=== PATIENT | female | born 1960 | race Asian ===

== ENCOUNTER 2016-11-07 21:40 | Emergency (ER) | payer MEDICAID ==
[~2016-11-07] VITALS: Ht 162.6 cm; Wt 86.2 kg
[2016-11-07] MEDS ORDERED: AMLODIPINE BESY10 MG ORAL (22:07)
--- NOTE | 2016-11-07 22:24 | Emergency Room Report ---
History of Present Illness General Chief Complaint: Generalized Weakness Source: Patient Present Illness HPI Patient presents with fevers chills vomiting and abdominal cramps. She also is coughing up green phlegm at this time. She is a smoker. Just slight amount of chest pain. She's not been evaluated for this. She has no exposure to tuberculosis. She's previously been evaluated for possible GI problems with cramps and diarrhea. This is somewhat worsened today. There's been no melena or hematemesis. She feels weak. Pain in her abdomen is 5/10, crampy, diffuse. Not radiating. No dysuria. No headache. She was told she needs endoscopy and colonoscopy. 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 + Reviewed Nursing Documentation: PMH: Agreed, PSxH: Agreed Nursing Documentation-PMH Hx Cardiac Problems: Yes - HIGH CHOLESTEROL Hx Hypertension: Yes Review of Systems All Other Systems: negative except mentioned in HPI Physical Exam Vital Signs Date Time Temp Pulse Resp B/P (MAP) Pulse Ox O2 Delivery O2 Flow Rate FiO2 11/07/16 22:00 98.2 72 18 145/79 96 Room Air Sp02 EP Interpretation: reviewed, normal General Appearance: well appearing, no apparent distress, GCS 15 Head: normocephalic, atraumatic Eyes: bilateral eye normal inspection, bilateral eye PERRL ENT: normal pharynx, moist mucus membranes Neck: supple Respiratory: lungs clear, wheezing, expiration - minimal L upper lung Cardiovascular #1: regular rate, rhythm Cardiovascular #2: 2+ radial (R) Gastrointestinal: normal inspection, normal bowel sounds, non tender, no mass, non-distended Musculoskeletal: back normal, gait/station normal, normal range of motion Neurologic: alert, oriented x3, grossly normal Psychiatric: mood/affect normal Skin: normal inspection, warm/dry Medical Decision Making Diagnostic Impression: Primary Impression: Bronchospasm Additional Impressions: Early pneumonia Abdominal cramping ER Course Patient presents with cough and abdominal pain that's been worsening over several weeks. Differential includes pneumonia, asthmatic bronchitis, bronchitis amongst others. She has chronic issues with her abdomen and was vomiting earlier today. Evaluation here will be with EKG, chest x-ray and labs. The patient be treated for IV hydration, Zofran and a small dose of analgesic. In addition to that she will receive albuterol. EKG is unremarkable except for prolonged QT. Chest x-ray has some increased leary R base, the heart size is normal. Labs are significant for an elevated white count. Urinalysis is clear. The patient is an approved and tolerates by mouth without difficulty. Improved with albuterol. Because of a leukocytosis and the purulent sputum the patient will be given a prescription for antibiotics. In addition to that she will receive Zofran and albuterol. Patient stable for outpatient observation and treatment. Laboratory Tests Test 11/07/16 23:00 11/08/16 00:35 11/08/16 00:40 Urine Color Yellow Urine Appearance Slightly cloudy Urine pH 5 (4.5-8.0) Urine Specific [place] 1.025 (1.005-1.035) Urine Protein 2+ (NEGATIVE) H Urine Glucose (UA) Negative (NEGATIVE) Urine Ketones Negative (NEGATIVE) Urine Occult Blood Negative (NEGATIVE) Urine Nitrite Negative (NEGATIVE) Urine Bilirubin Negative (NEGATIVE) Urine Urobilinogen 4 MG/DL (0.0-1.0) H Urine Leukocyte Esterase 1+ (NEGATIVE) H Urine RBC 0-2 /HPF (0 - 2) Urine WBC 2-4 /HPF (0 - 2) Urine Squamous Epithelial Cells Few /LPF (NONE/OCC) Urine Bacteria Few /HPF (NONE) White Blood Count 12.4 K/UL (4.8-10.8) H Red Blood Count 5.01 M/UL (4.20-5.40) Hemoglobin 15.8 G/DL (12.0-16.0) Hematocrit 47.5 % (37.0-47.0) H Mean Corpuscular Volume 95 FL (80-99) Mean Corpuscular Hemoglobin 31.5 PG (27.0-31.0) H Mean Corpuscular Hemoglobin Concent 33.2 G/DL (32.0-36.0) Red Cell Distribution Width 11.5 % (11.6-14.8) L Platelet Count 325 K/UL (150-450) Mean Platelet Volume 6.6 FL (6.5-10.1) Neutrophils (%) (Auto) 50.3 % (45.0-75.0) Lymphocytes (%) (Auto) 42.8 % (20.0-45.0) Monocytes (%) (Auto) 4.9 % (1.0-10.0) Eosinophils (%) (Auto) 0.9 % (0.0-3.0) Basophils (%) (Auto) 1.2 % (0.0-2.0) Prothrombin Time 11.3 SEC (9.30-11.50) Prothrombin Time INR 1.1 (0.9-1.1) PTT 32 SEC (23-33) Sodium Level 140 mEQ/L (135-145) Potassium Level 3.8 mEQ/L (3.4-4.9) Chloride Level 102 mEQ/L (98-107) Carbon Dioxide Level 24 mEQ/L (20-30) Anion Gap 14 (5-15) Blood Urea Nitrogen 8 mg/dL (7-23) Creatinine 0.6 mg/dL (0.5-0.9) Estimate Glomerular Filtration Rate > 60 mL/min (>60) Glucose Level 105 mg/dL (74-106) Calcium Level 9.2 mg/dL (8.6-10.2) Total Bilirubin 0.7 mg/dL (0.0-1.2) Aspartate Amino Transferase (AST) 32 U/L (5-40) Alanine Aminotransferase (ALT) 35 U/L (3-33) H Alkaline Phosphatase 93 U/L (35-104) Total Creatine Kinase 132 U/L (26-140) Pro-B-Type Natriuretic Peptide 14 pg/mL (0-125) Total Protein 7.6 g/dL (6.6-8.7) Albumin 4.6 g/dL (3.5-5.2) Globulin 3.0 g/dL Albumin/Globulin Ratio 1.5 (1.0-2.7) Lactic Acid Level 1.10 mmol/L (0.66-2.22) EKG Diagnostic Results Rate: normal Rhythm: NSR ST Segments: no acute changes Rhythm Strip Diag. Results EP Interpretation: yes Rhythm: NSR, no PVC's, no ectopy Chest X-Ray Diagnostic Results Chest X-Ray Diagnostic Results : Chest X-Ray Ordered: Yes # of Views/Limited/Complete: 1 View Indication: Other Interpretation: no consolidation, no effusion, no pneumothorax, other - RML inc leary Impression: Other Electronically Signed by: Electronically signed by Joao Chino MD Last Vital Signs Date Time Temp Pulse Resp B/P (MAP) Pulse Ox O2 Delivery O2 Flow Rate FiO2 11/08/16 03:32 98.0 88 16 136/65 99 Room Air Status: improved Disposition: HOME, SELF-CARE Condition: Improved Scripts Ondansetron Odt* (ZOFRAN ODT*) 4 Mg Tab.rapdis 4 MG ORAL Q8H Y for Nausea & Vomiting, #6 TAB 0 Refills Prov: Joao Chino M.D. 11/08/16 Albuterol Sulfate* (ALBUTEROL SULFATE MDI*) 8.5 Gm Hfa.aer.ad 2 PUFF INH Q6H, #1 EA 0 Refills Prov: Joao Chino M.D. 11/08/16 Codeine/Promethazine Hcl* (PROMETHAZINE-CODEINE SYRUP*) 118 Ml Syrup 5 ML ORAL Q6H Y for For Cough, #60 ML 0 Refills Prov: Joao Chino M.D. 11/08/16 Levofloxacin* (LEVAQUIN*) 500 Mg Tablet 500 MG ORAL DAILY, #7 TAB Prov: Joao Chino M.D. 11/08/16 Joao Chino M.D. Nov 07, 2016 22:24
[2016-11-07] MEDS ORDERED: Ketorolac 30mg Inj IV ONE (22:30)
[2016-11-07] MEDS ORDERED: Ipratropium 0.02% Inh Soln 2.5ml UD HHN ONE (22:30)
[2016-11-07] MEDS ORDERED: Albuterol ud Inhalation HHN ONE (22:30)
[2016-11-07 23:31] LABS: KETONES,URINE NEGATIVE (NEGATIVE); LEUKOCYTE ESTERASE ,URINE 1+ (NEGATIVE); NITRITE,URINE NEGATIVE (NEGATIVE); PH,URINE 5 (4.5-8.0); PROTEIN,URINE 2+ (NEGATIVE); UROBILINOGEN,URINE 4 MG/DL (0.0-1.0)
[2016-11-08 00:15] LABS: APPEARANCE,URINE SLIGHTLY CLOUDY
[2016-11-08 00:29] LABS: BACTERIA,URINE FEW /HPF; RBC,URINE 0-2 /HPF (0 - 2); SQUAMOUS EPITHELIAL CELL,UR FEW /LPF (NONE/OCC)
[2016-11-08 00:30] VITALS: BP 145/79
[2016-11-08 00:58] LABS: BASOPHILS % (AUTO) 1.2 % (0.0-2.0); EOSINOPHILS % (AUTO) 0.9 % (0.0-3.0); LYMPHOCYTES % (AUTO) 42.8 % (20.0-45.0); MEAN CORPUSCULAR HEMOGLOBIN 31.5 PG (27.0-31.0); MEAN CORPUSCULAR HGB CONC 33.2 G/DL (32.0-36.0); MEAN CORPUSCULAR VOLUME 95 FL (80-99); MEAN PLATELET VOLUME 6.6 FL (6.5-10.1); MONOCYTES % (AUTO) 4.9 % (1.0-10.0); NEUTROPHILS % (AUTO) 50.3 % (45.0-75.0); PLATELET COUNT 325 K/UL (150-450); RED BLOOD COUNT 5.01 M/UL (4.20-5.40); RED CELL DISTRIBUTION WIDTH 11.5 % (11.6-14.8); WHITE BLOOD COUNT 12.4 K/UL (4.8-10.8)
[2016-11-08 01:12] LABS: ALANINE AMINOTRANSFERASE 35 U/L (3-33); ALBUMIN/GLOBULIN RATIO 1.5 (1.0-2.7); ANION GAP 14 (5-15); ASPARTATE AMINO TRANSFERASE 32 U/L (5-40); CALCIUM 9.2 mg/dL (8.6-10.2); CARBON DIOXIDE 24 mEQ/L (20-30); CHLORIDE 102 mEQ/L (98-107); CREATININE 0.6 mg/dL (0.5-0.9); GLOMERULAR FILTRATION RATE > 60 mL/min (>60); HEMOLYSIS 5; POTASSIUM 3.8 mEQ/L (3.4-4.9); SODIUM 140 mEQ/L (135-145); TOTAL PROTEIN 7.6 g/dL (6.6-8.7)
[2016-11-08 01:13] LABS: INR 1.1 (0.9-1.1); PROTHROMBIN TIME 11.3 SEC (9.30-11.50)
[2016-11-08] MEDS ORDERED: PROMETHAZINE-C118 M1 ORAL (01:33)
[2016-11-08] MEDS ORDERED: ALBUTEROL SULF8.5 GM INH (01:33)
[2016-11-08] MEDS ORDERED: ZOFRAN ODT4 MG ORAL (01:33)
[2016-11-08] MEDS ORDERED: LEVAQUIN500 MG ORAL (01:33)
[2016-11-08] MEDS ORDERED: Levofloxacin 500mg tab ORAL ONE (01:45)
[2016-11-08 03:20] VITALS: BP 136/65
[2016-11-08 03:32] VITALS: BP 136/65
--- NOTE | 2016-11-08 11:14 | Diagnostic Imaging Report ---
Indication: Cough Comparison: None A single view chest radiograph was obtained. Findings: Cardiomediastinal appearance is within normal limits for age. Pulmonary vascularity is appropriate. The diaphragmatic contour is smooth and costophrenic angles are sharp. No pleural effusions are identified. The bones are unremarkable. Impression: No acute findings
--- NOTE | 2016-11-11 16:01 | Cardiology Report ---
APPROVED REPORT EKG Measurement Heart [id number] HI [id number] Normal sinus rhythm Prolonged QT Abnormal ECG
== END 2016-11-08 03:32 | disposition home or self-care (01) ==
LOC: EMR 22:15
DX: J18.9 Pneumonia, unspecified organism (principal); R10.9 Unspecified abdominal pain; F17.200 Nicotine dependence, unspecified, uncomplicated; I10 Essential (primary) hypertension; R53.1 Weakness
CPT/HCPCS: 36415; 71010; 80053; 81003; 82550; 83605; 83880; 85025; 85610; 85730; 93005; 94640; 94664; 96361; 96374; 96375; 99284; J1885; J2405

== ENCOUNTER 2016-11-10 19:50 | Emergency (ER) | payer MEDICAID ==
[~2016-11-10] VITALS: Ht 162.6 cm; Wt 90.7 kg
[~2016-11-10 19:50] MED LIST: ALBUTEROL SULF8.5 GM INH; AMLODIPINE BESY10 MG ORAL; LEVAQUIN500 MG ORAL; PROMETHAZINE-C118 M1 ORAL; ZOFRAN ODT4 MG ORAL
[2016-11-10 20:26] VITALS: BP 160/87
[2016-11-10] MEDS ORDERED: ALPRAZOLAM0.25 MG ORAL (20:44)
[2016-11-10] MEDS ORDERED: RANITIDINE HCL150 MG ORAL (20:55)
[2016-11-10 20:57] VITALS: BP 160/87
--- NOTE | 2016-11-11 16:46 | Emergency Room Report ---
History of Present Illness General Chief Complaint: Generalized Weakness Source: Patient Present Illness HPI 56-year-old female presents ED for evaluation. Patient states that she was seen here 2 days ago for cough, weakness. Patient was discharged with antibiotics. States that her symptoms are not improving. Patient states she's been taking antibiotics as directed. Patient states she feels weak, pulse of feeling very anxious. Patient does admit to history of anxiety states that her anxiety is "very severe". Denies chest pain or shortness of breath. Denies any reaction to the medications prescribed. Denies suicidal or homicidal ideation. No other aggravating relieving factors. Denies any other associated symptoms Allergies: Coded Allergies: No Known Allergies (Unverified , 11/07/16) Patient History Past Medical History: HTN Past Surgical History: none Pertinent Family History: none Social History: Denies: smoking, alcohol use, drug use Now: No Immunizations: UTD Reviewed Nursing Documentation: PMH: Agreed, PSxH: Agreed Nursing Documentation-PMH Past Medical History: No History, Except For Hx Cardiac Problems: Yes - HIGH CHOLESTEROL Hx Hypertension: Yes Review of Systems All Other Systems: negative except mentioned in HPI Physical Exam Vital Signs Date Time Temp Pulse Resp B/P (MAP) Pulse Ox O2 Delivery O2 Flow Rate FiO2 11/10/16 19:58 98.4 66 17 160/87 98 Room Air Sp02 EP Interpretation: reviewed, normal General Appearance: no apparent distress, alert, GCS 15, non-toxic Head: normocephalic, atraumatic Eyes: bilateral eye normal inspection, bilateral eye PERRL ENT: hearing grossly normal, normal pharynx, no angioedema, normal voice Neck: full range of motion, supple/symm/no masses Respiratory: chest non-tender, lungs clear, normal breath sounds, speaking full sentences Cardiovascular #1: regular rate, rhythm, no edema Cardiovascular #2: 2+ carotid (R), 2+ carotid (L), 2+ radial (R), 2+ radial (L) , 2+ dorsalis pedis (R), 2+ dorsalis pedis (L) Gastrointestinal: normal bowel sounds, non tender, soft, non-distended, no guarding, no rebound Rectal: deferred Genitourinary: normal inspection, no CVA tenderness Musculoskeletal: back normal, gait/station normal, normal range of motion, non- tender Neurologic: alert, oriented x3, responsive, motor strength/tone normal, sensory intact, speech normal Psychiatric: judgement/insight normal, memory normal, no suicidal/homicidal ideation, anxious Reflexes: 3+ bicep (R), 3+ bicep (L), 3+ tricep (R), 3+ tricep (L), 3+ knee (R) , 3+ knee (L) Skin: normal color, no rash, warm/dry, well hydrated Lymphatic: no adenopathy Medical Decision Making Diagnostic Impression: Primary Impression: Anxiety Additional Impression: Episode of generalized weakness ER Course 56-year-old female presents ED complaining of weakness, dizziness. Differential-dehydration, pneumonia, sepsis Patient placed on stretcher. After initial history physical exam reveals a middle-aged female in no acute distress. Lungs clear. Abdomen soft. Patient does appear very anxious which I do believe he is controlling to her symptoms. Patient had lab work done a few days ago during her visit. Had minimal leukocytosis, electrolytes ok; chest x-ray was concerning for some increased atelectasis the right lung base but was read by radiology as normal I discussed the findings with the patient. Reassurance provided. I did not believe she needs any additional workup at this time. Patient is believe her anxiety is worsening her symptoms. Patient was prescribed Prozac by her PMD approximately one year ago but did not take it because her friends advised her not to. Explain the importance of taking medications as directed by PMD. I recommend continuing antibiotics as prescribed. Continue good oral fluid intake. Patient agrees with plan I will provide her with short course of low-dose Xanax Diagnoses-anxiety,, generalized weakness Stable and discharged to home prescription for Xanax. Continue medications as prescribed. Followup with PMD. Return to ED if symptoms recur or worsen Last Vital Signs Date Time Temp Pulse Resp B/P (MAP) Pulse Ox O2 Delivery O2 Flow Rate FiO2 11/10/16 20:57 98.4 66 17 160/87 98 Room Air Status: improved Disposition: HOME, SELF-CARE Condition: Stable Scripts Ranitidine Hcl* (ZANTAC*) 150 Mg Tablet 150 MG ORAL TWICE A DAY, #30 TAB Prov: RICHMOND NEVES M.D. 11/10/16 Alprazolam* (XANAX*) 0.25 Mg Tablet 0.25 MG ORAL TID Y for For Anxiety, #20 TAB Prov: RICHMOND NEVES M.D. 11/10/16 Referrals: NON PHYSICIAN (PCP) Patient Instructions: Depression, Adult, [id number] RICHMOND NEVES M.D. Nov 11, 2016 16:46
== END 2016-11-10 20:56 | disposition home or self-care (01) ==
LOC: EMR 20:37
DX: F41.9 Anxiety disorder, unspecified (principal); R53.1 Weakness; R05 Cough; I10 Essential (primary) hypertension
CPT/HCPCS: 99284

== ENCOUNTER 2017-02-01 07:06 | Day surgery (SDC) | payer BC ==
[~2017-02-01] VITALS: Ht 162.6 cm; Wt 83.5 kg
[2017-02-01] VITALS (9 sets, daily range): BP systolic 118–142; BP diastolic 58–78
--- NOTE | 2017-02-01 06:32 | Anethesia Preoperative Eval ---
Anesthesia Pre-op PMH/ROS General Date of Evaluation: Feb 01, 2017 Time of Evaluation: 06:29 Anesthesiologist: lalo ASA Score: ASA 3 Mallampati Score Class I : Soft palate, uvula, fauces, pillars visible Class II: Soft palate, uvula, fauces visible Class III: Soft palate, base of uvula visible Class IV: Only hard plate visible Mallampati Classification: Class II Surgeon: rich Diagnosis: gerd, diarrhea Surgical Procedure: colonoscopy Social History: current smoker Allergies: Coded Allergies: No Known Allergies (Unverified , 11/07/16) Medications: see eMAR Past Medical History Cardiovascular: Reports: HTN, other - hypercholesterolemia Pulmonary: Reports: other - bronchospasms Gastrointestinal/Genitourinary: Reports: GERD, other - abdominal cramping Neurologic/Psychiatric: Reports: depression/anxiety, other - episodic generalized weakness Other: obesity Anesthesia Pre-op Phys. Exam Physician Exam Last Vital Signs Date Time Temp Pulse Resp B/P (MAP) Pulse Ox O2 Delivery O2 Flow Rate FiO2 02/01/17 07:43 98.2 67 18 118/76 96 Room Air Constitutional: NAD Neurologic: CN 2-12 intact Cardiovascular: RRR Respiratory: CTA Gastrointestinal: S/NT/ND Airway Exam Mallampati Score: Class II MO: full Neck: supple TMD: 2fb Teeth: intact Anesthesia Pre-op A/P Studies Pre-op Studies: EKG - nsr, nssttwa Risk Assessment & Plan Assessment: asa3 patient admits to drinking coffee at 0630 today Plan: mac Status Change Before Surgery: No Pre-Antibiotics Drug: RAJI Humphries Feb 01, 2017 06:32
[~2017-02-01 07:06] MED LIST changes: +ALPRAZOLAM0.25 MG ORAL; +RANITIDINE HCL150 MG ORAL
[2017-02-01] MEDS ORDERED: LR 1000ml 1,000 ML IVLG SCH (08:12)
[2017-02-01] MEDS ORDERED: Atropine Inj 1mg/10ml Syr IV PRN (08:15)
[2017-02-01] MEDS ORDERED: Midazolam 2mg/2ml Inj IVP PRN (08:15)
[2017-02-01] MEDS ORDERED: fentaNYL 100 mcg/2 mL IV PRN (08:15)
[2017-02-01] MEDS ORDERED: DiphenhydrAMINE 50mg/ml Inj IVP PRN (08:15)
[2017-02-01] MEDS ORDERED: Propofol 200mg/20ml IV ONE (08:30)
[2017-02-01] MEDS ORDERED: Lidocaine 1% MPF 10mg/ml 5ml ONE (08:30)
--- NOTE | 2017-02-01 08:54 | Pre-Procedure Note/Attestation ---
Pre-Procedure Note/Attestation Complete Prior to Procedure Planned Procedure: not applicable Procedure Narrative: esophagogastroduodenoscopy and colonoscopy Indications for Procedure Pre-Operative Diagnosis: screening colon, GERD Attestation I attest that I discussed the nature of the procedure; its benefits; risks and complications; and alternatives (and the risks and benefits of such alternatives ), prior to the procedure, with the patient (or the patient's legal electronics parts sales representative). I attest that, if there was a reasonable possibility of needing a blood transfusion, the patient (or the patient's legal electronics parts sales representative) was given the [facility] standardized written summary, pursuant to the Blane [place] Blood Safety Act ([place] Health and Safety Code # 1645, as amended). I attest that I re-evaluated the patient just prior to the surgery and that there has been no change in the patient's H&P, except as documented below: SONJA VALLE Feb 01, 2017 08:54
--- NOTE | 2017-02-01 08:54 | Short Stay Surgery H&P ---
History of Present Illness History of Present Illness Chief Complaint screening colon, GERD HPI Addie Harper is a 56 year old female who was admitted on for Gerd, Diarrhea Patient History Allergies: Coded Allergies: No Known Allergies (Unverified , 11/07/16) PAST MEDICAL HISTORY: (1) Bronchospasm (2) Abdominal cramping (3) Anxiety (4) Episode of generalized weakness Past Surgeries: Social History: Medication History Scheduled Albuterol Sulfate* (Albuterol Sulfate Mdi*), 2 PUFF INH Q6H Amlodipine Besylate* (Amlodipine Besylate*), 10 MG ORAL DAILY, (Reported) Levofloxacin* (Levaquin*), 500 MG ORAL DAILY Ranitidine Hcl* (Zantac*), 150 MG ORAL TWICE A DAY Scheduled PRN Alprazolam* (Xanax*), 0.25 MG ORAL TID PRN for For Anxiety Codeine/Promethazine Hcl* (Promethazine-Codeine Syrup*), 5 ML ORAL Q6H PRN for For Cough Ondansetron Odt* (Zofran Odt*), 4 MG ORAL Q8H PRN for Nausea & Vomiting Review of Systems Cardiovascular: Reports: no symptoms Skeletal: Reports: no symptoms Gastrointestinal: Reports: gastro esophageal reflux disease Genitourinary: Reports: no symptoms Endocrine: Reports: no symptoms Hematologic: Reports: no symptoms Physical Exam Vital Signs Last Vital Signs Date Time Temp Pulse Resp B/P (MAP) Pulse Ox O2 Delivery O2 Flow Rate FiO2 02/01/17 07:43 98.2 67 18 118/76 96 Room Air Skin: normal HENT: normal Heart: normal Lungs: normal Abdomen: normal Extremities: normal Plan Plan of Care esophagogastroduodenoscopy and colonoscopy Final Diagnosis: Attestation Are the patient's medical conditions optimized for surgery? Attestation Response: yes SONJA VALLE Feb 01, 2017 08:54
--- NOTE | 2017-02-01 09:31 | Endoscopy Procedure Note ---
Endoscopy Procedure Note Indication for Procedure: screening colon, GERD Procedures Performed: EGD, colonoscopy Operative Findings/Diagnosis: 5 polyps Specimen: yes Pt Tolerated Procedure Well: Yes Estimated Blood Loss: none Anesthesiologist: zacarias Anesthesia: MAC Implant(s) used?: No 50 yrs or older w/o bx or poly: No 10yrs. F/U not recommended: Yes If not recommended, why?: Above average risk 10 yrs. F/U needed: Yes 18 years or older w/prev. colo: No SONJA VALLE Feb 01, 2017 09:31
--- NOTE | 2017-02-01 09:53 | Immediate Post-Op Evaluation ---
Immediate Post-Op Evalulation Immediate Post-Op Evalulation Procedure: egd/colonoscopy Date of Evaluation: Feb 01, 2017 Time of Evaluation: 09:48 IV Fluids: 700ml 0.9ns Blood Products: none Estimated Blood Loss: negligible Blood Pressure Systolic: 123 Blood Pressure Diastolic: 74 Pulse Rate: 56 Respiratory Rate: 18 O2 Sat by Pulse Oximetry: 99 Temperature (Fahrenheit): 98.6 Pain Score (1-10): 0 Nausea: No Vomiting: No Complications none Patient Status: awake, reacts, patent Hydration Status: adequate Drug: RAJI Humphries Feb 01, 2017 09:53
--- NOTE | 2017-02-01 09:55 | 48 Hour Post Anesthesia Eval ---
Post Anesthesia Evaluation Procedure: egd/colonoscopy Date of Evaluation: Feb 01, 2017 Time of Evaluation: 09:54 Blood Pressure Systolic: 130 0: 74 Pulse Rate: 54 Respiratory Rate: 18 Temperature (Fahrenheit): 98.6 O2 Sat by Pulse Oximetry: 99 Airway: patent Nausea: No Vomiting: No Pain Intensity: 0 Hydration Status: adequate Cardiopulmonary Status: stable Mental Status/LOC: patient returned to baseline Post-Anesthesia Complications: none Follow-up care needed: N/A RAJI JANG Feb 01, 2017 09:55
--- NOTE | 2017-02-01 17:45 | Procedure Note ---
DATE OF PROCEDURE: 02/01/2017 SURGEON: Jose Garsia M.D. PROCEDURE: Colonoscopy with biopsy, polypectomy, and endoscopy with biopsy. ANESTHESIA: Per Dr. Gutierrez. INSTRUMENT: Olympus adult flexible upper endoscope and colonoscope. INDICATION: Screening colonoscopy evaluation and chronic GERD. The procedure, risks, benefits, and possible consequences, including hemorrhage, aspiration, perforation and infection, and alternative treatments, were explained to the patient/legal guardian by Dr. Jose Garsia and the patient/legal guardian understood and accepted these risks. DESCRIPTION OF PROCEDURE: After informed consent was obtained and the patient was adequately sedated, Olympus upper endoscope was advanced from the mouth into the second portion of the duodenum and retroflexion was performed in the stomach. The patient had evidence of a nodule in the peripyloric region, most probably an erosion. That area was biopsied. Also random biopsy from body and antrum was obtained to rule out H. pylori infection. At this time, the upper endoscope was retrieved and the patient was turned over for colonoscopy. First, a rectal exam was performed, which was positive for external hemorrhoids. Then, the scope was advanced from the rectum into the cecum and then subsequently into the terminal ileum. Quality of prep was very good. The patient had 1 diminutive polyp above the appendix, which was biopsied. The patient had another diminutive polyp in the transverse colon, removed with the cold biopsy forceps technique. In the area of the left colon, there were multiple small lesions with central cavitation. I am not sure exactly what was the significance of these lesions, 2 of them were biopsied. The patient had 2 diminutive polyps in the sigmoid, removed with the cold biopsy forceps technique. In the rectum, there was a sessile polyp measured roughly about 7 mm, removed with the hot snare polypectomy technique. Retroflexion of rectum showed no evidence of obvious internal hemorrhoids. SUMMARY OF FINDINGS: 1. Gastritis, status post biopsy. 2. Antral lesions, status post biopsy. 3. Total of 5 colonic polyps removed. See above for details. 4. External hemorrhoids. RECOMMENDATIONS: Follow biopsies and treat accordingly. We recommend a repeat colonoscopy in 3 years. Jose Garsia M.D. DR: SPRING JOB#: [id number] CC:
--- NOTE | 2017-02-07 10:56 | Cardiology Report ---
APPROVED REPORT EKG Measurement Heart [id number] ME [id number] Normal sinus rhythm Nonspecific ST and T wave abnormality Prolonged QT Abnormal ECG
== END 2017-02-01 10:55 | disposition home or self-care (01) ==
LOC: GAS 07:06
DX: Z12.11 Encounter for screening for malignant neoplasm of colon (principal); K29.50 Unspecified chronic gastritis without bleeding; K21.9 Gastro-esophageal reflux disease without esophagitis; K63.5 Polyp of colon; K64.4 Residual hemorrhoidal skin tags; F41.9 Anxiety disorder, unspecified; F17.200 Nicotine dependence, unspecified, uncomplicated; I10 Essential (primary) hypertension; E78.00 Pure hypercholesterolemia, unspecified; F32.9 Major depressive disorder, single episode, unspecified; D12.7 Benign neoplasm of rectosigmoid junction; D12.3 Benign neoplasm of transverse colon
CPT/HCPCS: 43239; 45380; 82962; 93005; J2704; 94003; 94150

== ENCOUNTER 2017-03-27 15:43 | Emergency (ER) | payer BC, OTHER ==
[~2017-03-27] VITALS: Ht 162.6 cm; Wt 86.2 kg
[2017-03-27 16:29] VITALS: BP 127/81
[2017-03-27] MEDS: LORazepam Inj 2mg/ml 1ml IV ONE ×2 (16:33→17:27)
--- NOTE | 2017-03-27 16:37 | Emergency Room Report ---
History of Present Illness General Chief Complaint: General Complaint Source: Patient Present Illness HPI The patient presents with a dyspnea headache and possible fevers. This started on Saturday. She took some alprazolam on Saturday. She has hypertension. She has also been treating herself for asthma and bronchospasm. No productive cough. She is on an antihypertensive and is compliant. She gets dyspneic when she is stressed. This can happen at work. With this, she feels chest pressure and anxiety. She states her blood pressure goes up when she feels this way. No chest pain, NVD, dysuria, headache, extremity pain, rashes, change in vision. No calf pain, swelling, hemoptysis. No flu shot. She's been seen here in the past for anxiety and bronchospasm. She does smoke and occasionally drinks a glass of wine. Allergies: Coded Allergies: No Known Allergies (Unverified , 11/07/16) Patient History Past Medical History: see triage record, old chart reviewed Social History: Reports: smoking, alcohol use, Denies: drug use Last Menstrual Period: na Reviewed Nursing Documentation: PMH: Agreed, PSxH: Agreed Nursing Documentation-PMH Past Medical History: No History, Except For Hx Cardiac Problems: Yes Hx Hypertension: Yes Hx Asthma: Yes Hx Diabetes: Yes Hx Cancer: No Hx Gastrointestinal Problems: Yes Hx Neurological Problems: No Review of Systems All Other Systems: negative except mentioned in HPI Physical Exam Vital Signs Date Time Temp Pulse Resp B/P (MAP) Pulse Ox O2 Delivery O2 Flow Rate FiO2 03/27/17 15:58 97.9 69 20 121/77 98 Room Air Sp02 EP Interpretation: reviewed, normal General Appearance: well appearing, no apparent distress, GCS 15 Head: normocephalic, atraumatic Eyes: bilateral eye normal inspection, bilateral eye PERRL ENT: moist mucus membranes Neck: supple Respiratory: lungs clear, normal breath sounds Cardiovascular #1: regular rate, rhythm Cardiovascular #2: 2+ radial (R) Gastrointestinal: normal inspection, normal bowel sounds, non tender, no mass, non-distended Musculoskeletal: back normal, gait/station normal, normal range of motion Neurologic: alert, oriented x3, motor strength/tone normal, sensory intact, normal gait, speech normal Skin: normal inspection, warm/dry Medical Decision Making Diagnostic Impression: Primary Impression: Dyspnea Qualified Codes: R06.00 - Dyspnea, unspecified Additional Impressions: Anxiety Labile hypertension ER Course Patient presents with dyspnea and possible fever. Ddx: viral syndrome, influenza, anxiety, bronchospasm (though no wheezes now), AMI amongst others. Evaluation with EKG, CXR and labs. Treatment with ativan. EKG no injury. CXR normal. Labs unremarkable. Flu negative. No documented fever. No wheezing. Patient improed with treatment. Discussed consideration for Paxil. BP has been stable. No medical emergency. Patient stable for outpatient observation and treatment. Laboratory Tests Test 03/27/17 16:38 White Blood Count 10.4 K/UL (4.8-10.8) Red Blood Count 4.79 M/UL (4.20-5.40) Hemoglobin 15.4 G/DL (12.0-16.0) Hematocrit 44.3 % (37.0-47.0) Mean Corpuscular Volume 93 FL (80-99) Mean Corpuscular Hemoglobin 32.1 PG (27.0-31.0) H Mean Corpuscular Hemoglobin Concent 34.7 G/DL (32.0-36.0) Red Cell Distribution Width 11.3 % (11.6-14.8) L Platelet Count 285 K/UL (150-450) Mean Platelet Volume 6.6 FL (6.5-10.1) Neutrophils (%) (Auto) 53.2 % (45.0-75.0) Lymphocytes (%) (Auto) 38.1 % (20.0-45.0) Monocytes (%) (Auto) 6.9 % (1.0-10.0) Eosinophils (%) (Auto) 0.8 % (0.0-3.0) Basophils (%) (Auto) 1.0 % (0.0-2.0) Erythrocyte Sedimentation Rate 20 MM/HR (0-30) Prothrombin Time 10.4 SEC (9.30-11.50) Prothrombin Time INR 1.0 (0.9-1.1) PTT 28 SEC (23-33) Urine Color Yellow Urine Appearance Clear Urine pH 5 (4.5-8.0) Urine Specific [place] 1.020 (1.005-1.035) Urine Protein Negative (NEGATIVE) Urine Glucose (UA) Negative (NEGATIVE) Urine Ketones Negative (NEGATIVE) Urine Occult Blood Negative (NEGATIVE) Urine Nitrite Negative (NEGATIVE) Urine Bilirubin Negative (NEGATIVE) Urine Urobilinogen Normal MG/DL (0.0-1.0) Urine Leukocyte Esterase 1+ (NEGATIVE) H Urine RBC 0-2 /HPF (0 - 2) Urine WBC 2-4 /HPF (0 - 2) Urine Squamous Epithelial Cells Few /LPF (NONE/OCC) Urine Calcium Oxalate Crystals Few /LPF (NONE) Urine Bacteria Few /HPF (NONE) Sodium Level 139 MMOL/L (136-145) Potassium Level 4.0 MMOL/L (3.5-5.1) Chloride Level 105 MMOL/L (98-107) Carbon Dioxide Level 26 MMOL/L (21-32) Anion Gap 8 mmol/L (5-15) Blood Urea Nitrogen 12 mg/dL (7-18) Creatinine 0.7 MG/DL (0.55-1.30) Estimate Glomerular Filtration Rate > 60 mL/min (>60) Glucose Level 85 MG/DL (74-106) Calcium Level 9.3 MG/DL (8.5-10.1) Total Bilirubin 0.4 MG/DL (0.2-1.0) Aspartate Amino Transferase (AST) 21 U/L (15-37) Alanine Aminotransferase (ALT) 33 U/L (12-78) Alkaline Phosphatase 89 U/L (46-116) Total Creatine Kinase 97 U/L (26-308) Troponin I 0.004 ng/mL (0.000-0.056) Pro-B-Type Natriuretic Peptide 15 pg/mL (0-125) Total Protein 7.7 G/DL (6.4-8.2) Albumin 4.0 G/DL (3.4-5.0) Globulin 3.7 g/dL Albumin/Globulin Ratio 1.1 (1.0-2.7) Urine Opiates Screen Negative (NEGATIVE) Urine Barbiturates Screen Negative (NEGATIVE) Phencyclidine (PCP) Screen Negative (NEGATIVE) Urine Amphetamines Screen Negative (NEGATIVE) Urine Benzodiazepines Screen Negative (NEGATIVE) Urine Cocaine Screen Negative (NEGATIVE) Urine Marijuana (THC) Screen Negative (NEGATIVE) Microbiology Date/Time Source Procedure Growth Status 03/27/17 17:03 Nasal Nares Influenza Types A,B Antigen (HAROON) - Final Complete EKG Diagnostic Results Rate: normal Rhythm: NSR ST Segments: no acute changes Rhythm Strip Diag. Results EP Interpretation: yes Rhythm: NSR, no PVC's, no ectopy Chest X-Ray Diagnostic Results Chest X-Ray Diagnostic Results : Chest X-Ray Ordered: Yes # of Views/Limited/Complete: 1 View Indication: Other EP Interpretation: Yes Interpretation: no consolidation, no effusion, no pneumothorax, no acute cardiopulmonary disease Impression: No acute disease Electronically Signed by: Electronically signed by Joao Chino MD Last Vital Signs Date Time Temp Pulse Resp B/P (MAP) Pulse Ox O2 Delivery O2 Flow Rate FiO2 03/27/17 20:57 97.8 98 17 109/74 97 Room Air Status: improved Disposition: HOME, SELF-CARE Condition: Improved Scripts Alprazolam* (XANAX*) 0.25 Mg Tablet 0.25 MG ORAL THREE TIMES A DAY, #10 TAB 0 Refills Prov: Joao Chino M.D. 03/27/17 Joao Chino M.D. Mar 27, 2017 16:37
[2017-03-27 17:05] LABS: EOSINOPHILS % (AUTO) 0.8 % (0.0-3.0); HEMATOCRIT 44.3 % (37.0-47.0); HEMOGLOBIN 15.4 G/DL (12.0-16.0); LYMPHOCYTES % (AUTO) 38.1 % (20.0-45.0); MEAN CORPUSCULAR VOLUME 93 FL (80-99); MONOCYTES % (AUTO) 6.9 % (1.0-10.0); NEUTROPHILS % (AUTO) 53.2 % (45.0-75.0); PLATELET COUNT 285 K/UL (150-450); RED BLOOD COUNT 4.79 M/UL (4.20-5.40); RED CELL DISTRIBUTION WIDTH 11.3 % (11.6-14.8); WHITE BLOOD COUNT 10.4 K/UL (4.8-10.8)
[2017-03-27 17:16] LABS: APPEARANCE,URINE CLEAR; BILIRUBIN, URINE NEGATIVE (NEGATIVE); GLUCOSE, URINE (UA) NEGATIVE (NEGATIVE); KETONES,URINE NEGATIVE (NEGATIVE); LEUKOCYTE ESTERASE ,URINE 1+ (NEGATIVE); NITRITE,URINE NEGATIVE (NEGATIVE); PH,URINE 5 (4.5-8.0); PROTEIN,URINE NEGATIVE (NEGATIVE); UROBILINOGEN,URINE NORMAL MG/DL (0.0-1.0)
[2017-03-27 17:26] LABS: ANION GAP 8 mmol/L (5-15); BLOOD UREA NITROGEN 12 mg/dL (7-18); CALCIUM 9.3 MG/DL (8.5-10.1); CARBON DIOXIDE 26 MMOL/L (21-32); CHLORIDE 105 MMOL/L (98-107); CREATININE 0.7 MG/DL (0.55-1.30); SODIUM 139 MMOL/L (136-145)
[2017-03-27 17:36] LABS: COLOR,URINE YELLOW
[2017-03-27 17:37] LABS: ALANINE AMINOTRANSFERASE 33 U/L (12-78); ALBUMIN/GLOBULIN RATIO 1.1 (1.0-2.7); ALKALINE PHOSPHATASE 89 U/L (46-116); ASPARTATE AMINO TRANSFERASE 21 U/L (15-37); BILIRUBIN,TOTAL 0.4 MG/DL (0.2-1.0); CREATINE KINASE 97 U/L (26-308)
[2017-03-27] MEDS ORDERED: CRESTOR20 MG ORAL (17:51)
[2017-03-27] MEDS ORDERED: FLUTICASONE PRO16 G1 NASAL (17:53)
[2017-03-27] MEDS ORDERED: BENZONATATE200 MG ORAL (17:54)
[2017-03-27] MEDS ORDERED: ESTROVEN 155 M155 MG PO (17:55)
[2017-03-27 18:02] VITALS: BP 113/67
[2017-03-27 19:36] VITALS: BP 129/62
[2017-03-27] MEDS ORDERED: XANAX0.25 MG ORAL (20:51)
[2017-03-27 20:52] VITALS: BP 109/74
[2017-03-27 20:57] VITALS: BP 109/74
--- NOTE | 2017-03-28 09:19 | Diagnostic Imaging Report ---
Indication: Dyspnea Technique: XRAY Chest 1v Comparison: 11/07/2016 Findings: There is enlarged. Mediastinal contours are sharp. There is mild central pulmonary vascular congestion. There is no focal airspace consolidation, pleural effusion or pneumothorax. There are degenerative changes of the spine. No acute osseous abnormality seen. Abdominal shield partially visualized. Impression: Cardiomegaly and mild pulmonary vascular congestion. No focal airspace consolidation, pleural effusion or pneumothorax.
--- NOTE | 2017-03-31 17:01 | Cardiology Report ---
APPROVED REPORT EKG Measurement Heart [id number] Normal sinus rhythm Nonspecific ST abnormality Abnormal ECG
== END 2017-03-27 21:00 | disposition home or self-care (01) ==
LOC: EMR 17:00
DX: R06.00 Dyspnea, unspecified (principal); F41.9 Anxiety disorder, unspecified; I10 Essential (primary) hypertension; E11.9 Type 2 diabetes mellitus without complications; J45.909 Unspecified asthma, uncomplicated
CPT/HCPCS: 36415; 71045; 80053; 80307; 81003; 82550; 82962; 83880; 84484; 85025; 85610; 85651; 85730; 86710; 93005; 96361; 96374; 99284

== ENCOUNTER 2017-05-10 14:02 | Inpatient (IN) | payer BC, OTHER ==
[~2017-05-10] VITALS: Ht 162.6 cm; Wt 81.6 kg
[~2017-05-10 14:02] MED LIST changes: +BENZONATATE200 MG ORAL; +CRESTOR20 MG ORAL; +ESTROVEN 155 M155 MG PO; +FLUTICASONE PRO16 G1 NASAL; +XANAX0.25 MG ORAL
[2017-05-10 14:26] VITALS: BP 127/60
[2017-05-10] MEDS ORDERED: LORazepam 1mg tab ORAL ONE (14:30)
[2017-05-10] MEDS ORDERED: PROAIR HFA8.5 GM INH (14:43)
[2017-05-10] MEDS ORDERED: METFORMIN HCL500 M1 ORAL (14:44)
[2017-05-10 15:08] LABS: EOSINOPHILS % (AUTO) 0.6 % (0.0-3.0); HEMOGLOBIN 15.1 G/DL (12.0-16.0); LYMPHOCYTES % (AUTO) 41.1 % (20.0-45.0); MEAN CORPUSCULAR VOLUME 92 FL (80-99); MONOCYTES % (AUTO) 4.6 % (1.0-10.0); NEUTROPHILS % (AUTO) 52.8 % (45.0-75.0); PLATELET COUNT 311 K/UL (150-450); RED BLOOD COUNT 4.87 M/UL (4.20-5.40); RED CELL DISTRIBUTION WIDTH 11.6 % (11.6-14.8); WHITE BLOOD COUNT 9.4 K/UL (4.8-10.8)
[2017-05-10 15:19] LABS: ANION GAP 9 mmol/L (5-15); BLOOD UREA NITROGEN 13 mg/dL (7-18); CALCIUM 8.9 MG/DL (8.5-10.1); CARBON DIOXIDE 25 MMOL/L (21-32); CHLORIDE 106 MMOL/L (98-107); CREATININE 0.6 MG/DL (0.55-1.30); POTASSIUM 3.9 MMOL/L (3.5-5.1); SODIUM 140 MMOL/L (136-145)
[2017-05-10 15:23] LABS: ALANINE AMINOTRANSFERASE 41 U/L (12-78); ALBUMIN 3.9 G/DL (3.4-5.0); ALBUMIN/GLOBULIN RATIO 1.1 (1.0-2.7); ALKALINE PHOSPHATASE 87 U/L (46-116); ASPARTATE AMINO TRANSFERASE 24 U/L (15-37); BILIRUBIN,TOTAL 0.5 MG/DL (0.2-1.0)
--- NOTE | 2017-05-10 15:37 | Diagnostic Imaging Report ---
Indication: Shortness of breath, chest pain Technique: One view of the chest Comparison: 03/27/2017 Findings: The heart is borderline enlarged. The lungs and pleural spaces are clear. The bones are unremarkable. Findings are unchanged Impression: Borderline cardiomegaly. No acute process
--- NOTE | 2017-05-10 15:44 | Emergency Room Report ---
History of Present Illness General Chief Complaint: Chest Pain Source: Patient Present Illness HPI 56-year-old female with a history of hypertension diabetes and tobacco use comes ER with complaints of chest pressure and burning sensation in her chest for the past 3-4 months intermittently, she reports it became worse today since around 8:30 this morning while she was eating an egg sandwich and she is not tried any medications for her symptoms today. She reports usually takes Zantac and other heartburn medications but didn't take any today. She denies cough, denies hemoptysis, denies shortness of breath, denies syncope, denies leg pain, denies leg swelling, denies diaphoresis, and does report that she had a normal stress test about 3 years ago. Allergies: Coded Allergies: No Known Allergies (Unverified , 11/07/16) Patient History Past Medical History: see triage record Reviewed Nursing Documentation: PMH: Agreed, PSxH: Agreed Nursing Documentation-PMH Past Medical History: No History, Except For Hx Cardiac Problems: Yes Hx Hypertension: Yes Hx Asthma: Yes Hx Diabetes: Yes Hx Cancer: No Hx Gastrointestinal Problems: Yes Hx Neurological Problems: No Review of Systems All Other Systems: negative except mentioned in HPI Physical Exam Vital Signs Date Time Temp Pulse Resp B/P (MAP) Pulse Ox O2 Delivery O2 Flow Rate FiO2 05/10/17 14:05 98.2 71 16 136/83 95 Room Air 98.2 Sp02 EP Interpretation: reviewed, normal General Appearance: no apparent distress, alert, non-toxic Head: normocephalic Eyes: bilateral eye normal inspection, bilateral eye PERRL, bilateral eye EOMI ENT: normal ENT inspection, hearing grossly normal, normal pharynx, no angioedema, normal voice, moist mucus membranes Neck: normal inspection, full range of motion, supple, supple/symm/no masses Respiratory: chest non-tender, lungs clear, normal breath sounds, chest symmetrical, palpation of chest normal Cardiovascular #1: normal peripheral pulses, regular rate, rhythm Cardiovascular #2: 2+ radial (R), 2+ radial (L), 2+ dorsalis pedis (R), 2+ dorsalis pedis (L) Gastrointestinal: normal inspection, non tender, soft, no mass, no guarding, no rebound Rectal: deferred Genitourinary: normal inspection, no CVA tenderness Musculoskeletal: back normal, gait/station normal, normal range of motion, non- tender, no calf tenderness, Josse's Sign negative Neurologic: alert, responsive, advertising manager III-XII nml as tested, motor strength/tone normal, sensory intact, speech normal Psychiatric: judgement/insight normal, memory normal, mood/affect normal, no suicidal/homicidal ideation Skin: normal color, no rash, warm/dry, normal turgor Lymphatic: no adenopathy Medical Decision Making Reaction to Intervention: Improved Diagnostic Impression: Primary Impression: Chest pain EKG Diagnostic Results EKG Time: 14:42 EP Interpretation: no st-t change, no TWI, no S1Q3T3 Rate: normal Rhythm: NSR ST Segments: no acute changes ASA given to the pt in ED: Yes Rhythm Strip Diag. Results Rhythm Strip Time: 15:42 Rate: 66 Rhythm: NSR, no PVC's, no ectopy Chest X-Ray Diagnostic Results Chest X-Ray Diagnostic Results : Chest X-Ray Ordered: Yes # of Views/Limited/Complete: 1 View Indication: Chest Pain EP Interpretation: Yes PA Xray: Interpretation reviewed, by supervising MD Interpretation: no consolidation, no effusion, no pneumothorax Impression: No acute disease Electronically Signed by: Jaime Cheung MD Reevaluation Time: 17:25 Last Vital Signs Date Time Temp Pulse Resp B/P (MAP) Pulse Ox O2 Delivery O2 Flow Rate FiO2 05/10/17 14:26 64 14 Room Air 05/10/17 14:26 97.6 127/60 99 97.6 Status: unchanged Reevaluation Impression Patient appears stable, but she is still having chest pressure as well as burning sensation despite getting H2 blockers, her symptoms may just be anxiety as well as severe GERD however she has hypertension, diabetes, and a tobacco use history so I will admit her as she has not had chest pain evaluation with stress test in about 3 years. Also because she is still having symptoms. She was given aspirin and now will try nitroglycerin, as well as Ativan if that does not work. Repeat troponin as well and admit her to the hospitalist. Disposition: ADMITTED INPATIENT Condition: Stable Referrals: JAMILAH ORTIZ (PCP) JAIME CHEUNG M.D May 10, 2017 15:44
[2017-05-10 16:08] VITALS: BP 126/75
[2017-05-10 17:21] VITALS: BP 131/77
[2017-05-10] MEDS: Nitroglycerin Subl 0.4mg tab SL PRN ×2 (17:34→17:48)
[2017-05-10 17:51] VITALS: BP 124/55
[2017-05-10] MEDS ORDERED: GI Cocktail 120ml ORAL PRN (18:30)
[2017-05-10] MEDS ORDERED: Benzonatate 100mg Perles ORAL PRN (19:00)
[2017-05-10] MEDS ORDERED: Nitroglycerin Subl 0.4mg tab SL PRN (19:00)
[2017-05-10 20:00] VITALS: BP 144/70
[2017-05-10] MEDS: Albuterol 90mcg Inhaler 8gm INH SCH (20:57)
[2017-05-10] MEDS ORDERED: Heparin 5000 units/ml inj SUBQ SCH (21:00)
[2017-05-10] MEDS: NovoLOG Insulin Flexpen SUBQ SCH (21:00)
[2017-05-10] MEDS: ALPRAZolam 0.25mg tab ORAL PRN (21:06)
[2017-05-10] MEDS: Atorvastatin 20mg tab ORAL SCH (21:06)
[2017-05-11] MEDS: Albuterol 90mcg Inhaler 8gm INH SCH ×4 (01:29→19:24)
[2017-05-11 04:00] VITALS: BP 104/69
[2017-05-11] MEDS: NovoLOG Insulin Flexpen SUBQ SCH ×4 (06:30→21:00)
[2017-05-11 07:25] LABS: CHOLESTEROL 157 MG/DL (< 200); HDL CHOLESTEROL 28 MG/DL (40-60); TRIGLYCERIDES 243 MG/DL (30-150)
[2017-05-11 08:00] VITALS: BP 122/75
[2017-05-11] MEDS: Flonase Nasal Inhaler 16gm NASAL SCH (08:43)
[2017-05-11] MEDS: Acetaminophen 500mg (ES) tab ORAL PRN ×2 (08:44→21:05)
[2017-05-11] MEDS: Aspirin EC 81mg tab ORAL SCH (08:44)
[2017-05-11] MEDS: metFORMIN 500mg tab ORAL SCH ×2 (08:44→08:48)
[2017-05-11 12:00] VITALS: BP 125/75
--- NOTE | 2017-05-11 12:15 | History and Physical Report ---
DATE OF ADMISSION: 05/10/2017 CHIEF COMPLAINT: Chest pain and abdominal pain. HISTORY OF PRESENT ILLNESS: The patient is a pleasant 56-year-old female. She has history of hypertensive heart disease, hyperlipidemia, and diabetes. She presented with complaints of 3 months of progressive midepigastric abdominal pain radiating into her chest. According to the patient, she has had symptoms started around January. They are not associated with exercise and not necessarily associated with eating. She initially thought she had acid reflux. She had lower and upper endoscopy that showed only polyps. She was treated with acid-reducing medications, but continued to have symptoms. On the day of admission here, she had pain while at work and came to the emergency room. On evaluation there, EKG showed no acute ST-T wave changes. Her initial cardiac enzymes were negative. In light of her progressive symptoms, she is admitted for further evaluation and care. PAST MEDICAL HISTORY: As above. PAST SURGICAL HISTORY: Cholecystectomy. CURRENT MEDICATIONS: Reconciled and reviewed. ALLERGIES: None. FAMILY HISTORY: Negative for heart disease. SOCIAL HISTORY: The patient is a smoker. Denies any alcohol or drugs. 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 REVIEW OF SYSTEMS: GENERAL: No fever or chills. HEENT: No headaches or visual changes. CARDIOPULMONARY: Positive midepigastric chest pain, lower chest pain, and epigastric pain. Mild nausea, but no vomiting. No diarrhea. No melena. No bright red blood per rectum. GENITOURINARY: No urgency or frequency. MUSCULOSKELETAL: No joint pain or swelling. NEUROLOGIC: No evidence of seizures. Positive mild headaches. PHYSICAL EXAMINATION: VITAL SIGNS: Temperature 97 degrees, pulse 58, respirations 18, and blood pressure 104/69. The patient is well developed, in no apparent distress. NECK: Supple. There is no jugular venous distention. HEART: Regular rate and rhythm. LUNGS: Clear. ABDOMEN: Soft, nontender, nondistended. EXTREMITIES: Without clubbing, cyanosis, or edema. LABORATORY DATA: Sodium 140, potassium 3.9, and creatinine was 0.6. White count 9. LFTs were unremarkable. EKG showed normal sinus rhythm without any acute ST-T wave changes. Venous duplex of the lower extremities is negative. ASSESSMENT: This is a pleasant female with history of hypertension, diabetes, she is a smoker, who presents with complaints of midepigastric abdominal pain. Symptoms seem somewhat atypical. They are sometimes associated with exercise, but at other times are not, sometimes happen randomly. Doubt cardiac etiology, but there was some concern in light of her risk factors. PLAN: We will check an echo. Cardiology consultation has been obtained. GI consultation will also be obtained. We will double the dose of the patient's PPI treatment. Consider adding Reglan. Check lipid panel. Consider CT scan of the abdomen in light of the patient's persistent pain. Logan Murphy M.D. DR: Patrick JOB#: [id number] CC:
[2017-05-11 16:00] VITALS: BP 121/69
[2017-05-11 20:00] VITALS: BP 97/54
--- NOTE | 2017-05-11 21:00 | Consultation ---
DATE OF CONSULTATION: 05/11/2017 GASTROENTEROLOGY CONSULTATION CONSULTING PHYSICIAN: Jose Garsia M.D. CHIEF COMPLAINT: Heartburn and abdominal pain. HISTORY OF PRESENT ILLNESS: This is a very pleasant 56-year-old female, known to me from endoscopy and colonoscopy I did for her as an outpatient in January. Endoscopy showed evidence of gastritis. H pylori negative. Colonoscopy, she had 5 polyps removed. She also has some hemorrhoids. The patient is admitted to hospital mainly for chest pain. According to her, she was diagnosed with diabetes about few weeks ago and was started on metformin, which may give her some diarrhea and indigestion and she is not sure if the symptoms that she is experiencing is due to that. PAST MEDICAL HISTORY: 1. History of multiple colonic polyps. 2. Chronic acid reflux disease. 3. H. pylori negative gastritis. 4. History of hypertension. 5. Asthma. 6. Diabetes. 7. GERD. PAST SURGICAL HISTORY: None. MEDICATIONS: Please see medication reconciliation list. ALLERGIES: No known drug allergies. FAMILY HISTORY: Noncontributory. SOCIAL HISTORY: Smokes half a pack per day. Drinks socially. No drug abuse. REVIEW OF SYSTEMS: A 10-point review of system was performed and pertinent positives in history of present illness. PHYSICAL EXAMINATION: VITAL SIGNS: Temperature is 98.2 degrees, pulse is 66, respirations 18 and blood pressure is 124/75. HEENT: Normocephalic, atraumatic. Sclerae anicteric. NECK: Supple. No evidence of lymphadenopathy. CARDIOVASCULAR: Regular rate and rhythm plus S1 and S2. No S3 or S4. LUNGS: Decreased breath sounds bilaterally. ABDOMEN: Positive bowel sounds. Soft, nontender. No rebound or guarding. No peritoneal sign. EXTREMITIES: No cyanosis. No clubbing. No edema. LABORATORY AND DIAGNOSTIC DATA: Sodium 140, potassium 3.9, BUN is 13, and creatinine 0.6. CBC completely normal. ASSESSMENT: This is a 56-year-old female, admitted to hospital with chest pain, diarrhea, indigestion, and GERD. This is most probably secondary to metformin that she was taking. We are going to start her on PPI daily. Follow with Cardiology regarding her chest pain complaints. Given recent endoscopy and colonoscopy, we will not proceed for any of those. We will follow closely and make further recommendation as needed. Jose Garsia M.D. DR: TATA JOB#: [id number] CC:
[2017-05-11] MEDS: ALPRAZolam 0.25mg tab ORAL PRN (21:04)
[2017-05-11] MEDS: Atorvastatin 20mg tab ORAL SCH (21:04)
[2017-05-12] VITALS: BP 114/64
[2017-05-12] MEDS: Albuterol 90mcg Inhaler 8gm INH SCH ×4 (01:45→18:39)
[2017-05-12 04:00] VITALS: BP 127/58
[2017-05-12] MEDS: NovoLOG Insulin Flexpen SUBQ SCH ×4 (06:45→21:00)
[2017-05-12 08:00] VITALS: BP 126/86
--- NOTE | 2017-05-12 08:35 | General Progress Note ---
Assessment/Plan Problem List: (1) DM (diabetes mellitus) ICD Codes: E11.9 - Type 2 diabetes mellitus without complications SNOMED: 44933797 (2) Abdominal cramping ICD Codes: R10.9 - Unspecified abdominal pain SNOMED: 56908408 (3) Anxiety ICD Codes: F41.9 - Anxiety disorder, unspecified SNOMED: 70713673 Assessment/Plan recent EGD and colonoscopy dc metformin fu labs Subjective ROS Limited/Unobtainable: Yes Allergies: Coded Allergies: No Known Allergies (Unverified , 11/07/16) Subjective c/o diarrhea and abd pain Objective Last 24 Hour Vital Signs Date Time Temp Pulse Resp B/P (MAP) Pulse Ox O2 Delivery O2 Flow Rate FiO2 05/12/17 07:21 66 18 97 Room Air 21 05/12/17 07:21 66 18 97 Room Air 21 05/12/17 04:00 97.0 52 18 127/58 94 97.0 05/12/17 04:00 68 05/12/17 01:46 64 18 97 Room Air 05/12/17 01:44 64 18 97 Room Air 05/12/17 00:00 98.1 58 18 114/64 97 98.1 05/12/17 00:00 59 05/11/17 20:00 57 05/11/17 20:00 98.1 57 18 97/54 95 98.1 05/11/17 19:35 64 18 97 Room Air 05/11/17 19:21 64 18 97 Room Air 05/11/17 16:00 62 05/11/17 16:00 97.9 60 18 121/69 97 Room Air 97.9 05/11/17 12:59 57 18 97 Room Air 05/11/17 12:56 57 18 97 Room Air 05/11/17 12:00 98.2 56 18 125/75 99 98.2 05/11/17 12:00 59 05/11/17 09:43 97.0 05/11/17 08:45 57 122/75 05/11/17 08:44 97.0 Intake and Output 05/11/17 05/12/17 19:00 07:00 Intake Total 480 ml 240 ml Balance 480 ml 240 ml Intake Oral 480 ml 240 ml # Voids 3 # Bowel Movements 1 Laboratory Tests 05/11/17 13:45: Urine Opiates Screen Negative, Urine Barbiturates Screen Negative, Phencyclidine (PCP) Screen Negative, Urine Amphetamines Screen Negative, Urine Benzodiazepines Screen Negative, Urine Cocaine Screen Negative, Urine Marijuana (THC) Screen Negative Height (Feet): 5 Height (Inches): 4.00 Weight (Pounds): 182 General Appearance: alert EENT: normal ENT inspection Neck: supple Cardiovascular: normal rate Respiratory/Chest: lungs clear Abdomen: normal bowel sounds, soft Extremities: non-tender SONJA VALLE May 12, 2017 08:35
[2017-05-12] MEDS: Aspirin EC 81mg tab ORAL SCH (08:41)
[2017-05-12] MEDS: Flonase Nasal Inhaler 16gm NASAL SCH (08:43)
[2017-05-12] MEDS: Lidocaine 2% Visc 15ml soln ORAL PRN ×2 (10:33→22:12)
[2017-05-12 11:19] LABS: BASOPHILS % (AUTO) 0.9 % (0.0-2.0); EOSINOPHILS % (AUTO) 1.8 % (0.0-3.0); HEMATOCRIT 42.3 % (37.0-47.0); HEMOGLOBIN 14.5 G/DL (12.0-16.0); LYMPHOCYTES % (AUTO) 44.3 % (20.0-45.0); MEAN CORPUSCULAR VOLUME 93 FL (80-99); MONOCYTES % (AUTO) 6.8 % (1.0-10.0); NEUTROPHILS % (AUTO) 46.3 % (45.0-75.0); PLATELET COUNT 285 K/UL (150-450); RED BLOOD COUNT 4.55 M/UL (4.20-5.40); RED CELL DISTRIBUTION WIDTH 11.5 % (11.6-14.8); WHITE BLOOD COUNT 7.8 K/UL (4.8-10.8)
--- NOTE | 2017-05-12 11:25 | General Progress Note ---
Assessment/Plan Problem List: (1) Chest pain ICD Codes: R07.9 - Chest pain, unspecified SNOMED: 65369911 (2) Episode of generalized weakness ICD Codes: R53.1 - Weakness SNOMED: 26080522 (3) Labile hypertension ICD Codes: R09.89 - Other specified symptoms and signs involving the circulatory and respiratory systems SNOMED: 515297664 (4) DM (diabetes mellitus) ICD Codes: E11.9 - Type 2 diabetes mellitus without complications SNOMED: 05619375 (5) Abdominal cramping ICD Codes: R10.9 - Unspecified abdominal pain SNOMED: 50310442 (6) Anxiety ICD Codes: F41.9 - Anxiety disorder, unspecified SNOMED: 07498681 Status: stable, not improved Assessment/Plan ct abd PPI rx dc metformin gi cocktail Subjective ROS Limited/Unobtainable: No Constitutional: Reports: malaise, weakness HEENT: Reports: no symptoms Cardiovascular: Reports: no symptoms Respiratory: Reports: no symptoms Gastrointestinal/Abdominal: Reports: abdominal pain, nausea Genitourinary: Reports: no symptoms Neurologic/Psychiatric: Reports: no symptoms Endocrine: Reports: no symptoms Hematologic/Lymphatic: Reports: no symptoms Allergies: Coded Allergies: No Known Allergies (Unverified , 11/07/16) All Systems: reviewed and negative except above Subjective still with midepigastric pain and nausea. tearful. no cp Objective Last 24 Hour Vital Signs Date Time Temp Pulse Resp B/P (MAP) Pulse Ox O2 Delivery O2 Flow Rate FiO2 05/12/17 08:42 67 126/86 05/12/17 07:21 66 18 97 Room Air 21 05/12/17 07:21 66 18 97 Room Air 21 05/12/17 04:00 97.0 52 18 127/58 94 97.0 05/12/17 04:00 68 05/12/17 01:46 64 18 97 Room Air 05/12/17 01:44 64 18 97 Room Air 05/12/17 00:00 98.1 58 18 114/64 97 98.1 05/12/17 00:00 59 05/11/17 20:00 57 05/11/17 20:00 98.1 57 18 97/54 95 98.1 05/11/17 19:35 64 18 97 Room Air 05/11/17 19:21 64 18 97 Room Air 05/11/17 16:00 62 05/11/17 16:00 97.9 60 18 121/69 97 Room Air 97.9 05/11/17 12:59 57 18 97 Room Air 05/11/17 12:56 57 18 97 Room Air 05/11/17 12:00 98.2 56 18 125/75 99 98.2 05/11/17 12:00 59 Intake and Output 05/11/17 05/12/17 19:00 07:00 Intake Total 480 ml 240 ml Balance 480 ml 240 ml Intake Oral 480 ml 240 ml # Voids 3 # Bowel Movements 1 Laboratory Tests 05/11/17 13:45: Urine Opiates Screen Negative, Urine Barbiturates Screen Negative, Phencyclidine (PCP) Screen Negative, Urine Amphetamines Screen Negative, Urine Benzodiazepines Screen Negative, Urine Cocaine Screen Negative, Urine Marijuana (THC) Screen Negative 05/12/17 09:50: White Blood Count 7.8, Red Blood Count 4.55, Hemoglobin 14.5, Hematocrit 42.3, Mean Corpuscular Volume 93, Mean Corpuscular Hemoglobin 31.9H, Mean Corpuscular Hemoglobin Concent 34.3, Red Cell Distribution Width 11.5L, Platelet Count 285, Mean Platelet Volume 7.1, Neutrophils (%) (Auto) 46.3, Lymphocytes (%) (Auto) 44.3, Monocytes (%) (Auto) 6.8, Eosinophils (%) (Auto) 1.8, Basophils (%) (Auto ) 0.9, Sodium Level [Pending], Potassium Level [Pending], Chloride Level [ Pending], Carbon Dioxide Level [Pending], Blood Urea Nitrogen [Pending], Creatinine [Pending], Estimat Glomerular Filtration Rate [Pending], Glucose Level [Pending], Calcium Level [Pending], Total Bilirubin [Pending], Aspartate Amino Transf (AST/SGOT) [Pending], Alanine Aminotransferase (ALT/SGPT) [Pending] , Alkaline Phosphatase [Pending], Total Protein [Pending], Albumin [Pending], Globulin [Pending], Amylase Level [Pending], Lipase [Pending] Height (Feet): 5 Height (Inches): 4.00 Weight (Pounds): 182 General Appearance: WD/WN, alert Neck: supple Cardiovascular: regular rhythm Respiratory/Chest: lungs clear, normal breath sounds Abdomen: normal bowel sounds, non tender, soft, no organomegaly Edema: no edema noted Arm (L), no edema noted Arm (R), no edema noted Leg (L), no edema noted Leg (R), no edema noted Pedal (L), no edema noted Pedal (R), no edema noted Generalized KRIS SANTIZO May 12, 2017 11:25
[2017-05-12 11:31] LABS: ALANINE AMINOTRANSFERASE 34 U/L (12-78); ALBUMIN 3.6 G/DL (3.4-5.0); ALKALINE PHOSPHATASE 78 U/L (46-116); AMYLASE 62 U/L (25-115); ANION GAP 11 mmol/L (5-15); ASPARTATE AMINO TRANSFERASE 19 U/L (15-37); BILIRUBIN,TOTAL 0.3 MG/DL (0.2-1.0); BLOOD UREA NITROGEN 12 mg/dL (7-18); CALCIUM 8.8 MG/DL (8.5-10.1); CARBON DIOXIDE 24 MMOL/L (21-32); CHLORIDE 107 MMOL/L (98-107); CREATININE 0.7 MG/DL (0.55-1.30); POTASSIUM 3.7 MMOL/L (3.5-5.1); SODIUM 142 MMOL/L (136-145)
[2017-05-12] MEDS: Acetaminophen 500mg (ES) tab ORAL PRN ×2 (11:51→16:11)
[2017-05-12 12:00] VITALS: BP 122/62
--- NOTE | 2017-05-12 13:23 | Diagnostic Imaging Report ---
Indication: Abdominal pain Technique: CT of the abdomen and pelvis utilizing automated exposure control with without intravenous contrast. Oral contrast was administered. CT dose: Total DLP 985 mGycm; CTDI vol 19 mGy Comparison: None Findings: Please note that evaluation of the abdominal and pelvic viscera is limited without the use of intravenous contrast. Within these limitations the following observations are made: Very mild dependent atelectatic changes noted in the medial right lower lobe. Heart size is likely within normal limits. The patient is status post cholecystectomy. Noncontrast evaluation of the liver, spleen, adrenal glands and pancreas is grossly unremarkable. Kidneys appear symmetric in size. No urinary tract stones or hydronephrosis is identified bilaterally. The bladder is decompressed, limiting its evaluation. Uterus and adnexa are grossly unremarkable for noncontrast CT. There is no free intraperitoneal air or fluid. There is no bowel obstruction. No additional perienteric inflammatory change. Question mild thickening of the proximal stomach. The appendix is normal. No pathologically enlarged lymphadenopathy is appreciated. Abdominal aorta is normal in caliber. There are mild degenerative changes of the spine. No acute osseous abnormalities IMPRESSION: Limited exam without intravenous contrast. Within these limitations: Questionable thickening of the proximal stomach. Gastritis or additional abnormality is not entirely excluded. Consider upper endoscopy. No evidence of bowel obstruction. No free intraperitoneal air. Appendix is normal. Status post cholecystectomy. Additional findings as above. The CT scanner at [facility] is accredited by the [employer] and the scans are performed using protocols designed to limit radiation exposure to as low as reasonably achievable to attain images of sufficient resolution adequate for diagnostic evaluation.
[2017-05-12 16:00] VITALS: BP 121/41
[2017-05-12 20:00] VITALS: BP 144/84
[2017-05-12] MEDS: Atorvastatin 20mg tab ORAL SCH (21:03)
[2017-05-13] VITALS (9 sets, daily range): BP systolic 100–157; BP diastolic 69–79
[2017-05-13] MEDS: ALPRAZolam 0.25mg tab ORAL PRN (00:01)
[2017-05-13] MEDS: Albuterol 90mcg Inhaler 8gm INH SCH ×3 (01:00→13:25)
--- NOTE | 2017-05-13 05:15 | Progress Note ---
DATE: 05/11/2017 CARDIOLOGY PROGRESS NOTE Late entry for 05/11/2017. SUBJECTIVE: Prior records have been obtained and reviewed regarding her GI workup from several months ago. She had gastritis with H. pylori negative biopsy. She also was noted to have five benign polyps removed from her colon. The patient continues to have some episodes of discomfort in her chest and upper abdomen. She notes that metformin was recently started, but her symptoms preceded that. OBJECTIVE: VITAL SIGNS: Blood pressure 124/75, pulse 66, and respirations 18. LUNGS: Clear. CARDIAC: Regular. ABDOMEN: Soft and no focal tenderness. EXTREMITIES: Without edema. LABORATORY DATA: Troponin negative x2. Lipid panel notable for triglycerides 243, total cholesterol 157, HDL 28, and LDL 105. IMPRESSION: 1. Atypical anginal syndrome. 2. History of gastritis likely with current symptoms associated with that diagnosis. 3. Type 2 diabetes mellitus. 4. Hypertriglyceridemia. 5. Low HDL syndrome. 6. History of hypertension. PLAN: 1. Await GI consultation. 2. Continue empiric PPI. 3. Continue low dose coated aspirin. 4. Consider repeat myocardial perfusion scan with exercise stress. Joao Hayes M.D. DR: SUSANNE JOB#: [id number] CC:
--- NOTE | 2017-05-13 05:30 | Progress Note ---
DATE: 05/12/2017 CARDIOLOGY PROGRESS NOTE SUBJECTIVE: The patient has no new complaints. She continues to have some epigastric discomfort. No shortness of breath. She is scheduled for repeat endoscopy tomorrow. OBJECTIVE: Blood pressure range reviewed. Exam without change. IMPRESSION: 1. Midepigastric pain. 2. History of gastritis. 3. History of colon polyps. 4. Multiple risk factors for premature coronary disease with atypical anginal symptoms. 5. Low range blood pressure, on antihypertensives. 6. History of type 2 diabetes mellitus. PLAN: 1. Decrease amlodipine dose. 2. Continue empiric anti-platelet therapy and proton pump inhibitors. 3. Await results of repeat endoscopy. 4. Consider repeat stress testing. Joao Hayes M.D. DR: SUSANNE JOB#: [id number] CC:
--- NOTE | 2017-05-13 05:30 | Consultation ---
DATE OF CONSULTATION: 05/10/2017 CARDIOLOGY CONSULTATION CONSULTING PHYSICIAN: Joao Hayes M.D. REQUESTING PHYSICIAN: Logan Murphy M.D. REASON FOR CONSULTATION: The patient seen in the emergency room for chest pain. HISTORY OF PRESENT ILLNESS: This 56-year-old female has a history of hypertension, diabetes, and tobacco use and she presented to the emergency room with a burning sensation in her chest for several months, recurring intermittently, and worsening today prompting this hospital emergency room evaluation. The patient has had prior workups including a stress test with nuclear imaging several months ago that was reportedly normal. She has been given a variety of treatments including anti-reflux and heartburn medications with limited response. She even has been given an anxiolytic, namely Xanax. 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 She denies that her symptoms have been never associated specifically with physical activity. PAST MEDICAL HISTORY: Includes hypertension, asthma, and type 2 diabetes mellitus. MEDICATIONS: Reviewed and reconciled. ALLERGIES: None known. SOCIAL HISTORY: Positive for smoking. No alcohol or substance abuse. REVIEW OF SYSTEMS: A 10-point review of systems performed all systems negative other than noted above. The patient did have an endoscopy and colonoscopy several months ago that were reportedly unremarkable, however, full report is not presently available. PHYSICAL EXAMINATION: VITAL SIGNS: Afebrile, blood pressure 136/83, pulse 71, respirations 16, and room air oxygen saturation 97%. HEENT: Conjunctivae pink. Oropharynx clear. NECK: Supple. No bruits. No jugular venous distention. LUNGS: Clear. CARDIAC: Regular rhythm and rate. Normal S1, S2 with no murmur, rub, or gallop. ABDOMEN: Soft and nontender. EXTREMITIES: Good pulses. No edema. NEUROLOGIC: Nonfocal. Appropriate mood and affect. LABORATORY AND DIAGNOSTIC DATA: EKG, sinus rhythm with no abnormality. First troponin level negative. IMPRESSION: Chest pain syndrome in a patient with several risk factors for premature coronary disease although presentation and findings are atypical. 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 Joao Hayes M.D. DR: RICHARD JOB#: [id number] CC:
[2017-05-13] MEDS: NovoLOG Insulin Flexpen SUBQ SCH ×2 (06:27→11:30)
--- NOTE | 2017-05-13 07:06 | Anethesia Preoperative Eval ---
Anesthesia Pre-op PMH/ROS General Date of Evaluation: May 13, 2017 Time of Evaluation: 07:33 Anesthesiologist: lalo ASA Score: ASA 3 Mallampati Score Class I : Soft palate, uvula, fauces, pillars visible Class II: Soft palate, uvula, fauces visible Class III: Soft palate, base of uvula visible Class IV: Only hard plate visible Mallampati Classification: Class II Surgeon: karon Diagnosis: abdominal pain Surgical Procedure: egd w/ bx Anesthesia History: none Social History: smoking - nonsmoker Family History: no anesthesia problems Allergies: Coded Allergies: No Known Allergies (Unverified , 11/07/16) Medications: see eMAR Past Medical History Cardiovascular: Reports: HTN Pulmonary: Reports: asthma Gastrointestinal/Genitourinary: Reports: GERD, other - uti Neurologic/Psychiatric: Reports: depression/anxiety Endocrine: Reports: DM Other: obesity Anesthesia Pre-op Phys. Exam Physician Exam Last Vital Signs Date Time Temp Pulse Resp B/P (MAP) Pulse Ox O2 Delivery O2 Flow Rate FiO2 05/13/17 04:00 50 05/13/17 04:00 98.1 20 143/79 97 Room Air 98.1 05/13/17 01:27 21 Constitutional: NAD Neurologic: CN 2-12 intact Cardiovascular: RRR Respiratory: CTA Gastrointestinal: S/NT/ND Airway Exam Mallampati Score: Class II MO: full Neck: short TMD: 2fb ROM: full Teeth: intact Anesthesia Pre-op A/P Labs Hematology Test 05/12/17 09:50 White Blood Count 7.8 K/UL (4.8-10.8) Red Blood Count 4.55 M/UL (4.20-5.40) Hemoglobin 14.5 G/DL (12.0-16.0) Hematocrit 42.3 % (37.0-47.0) Mean Corpuscular Volume 93 FL (80-99) Mean Corpuscular Hemoglobin 31.9 PG (27.0-31.0) H Mean Corpuscular Hemoglobin Concent 34.3 G/DL (32.0-36.0) Red Cell Distribution Width 11.5 % (11.6-14.8) L Platelet Count 285 K/UL (150-450) Mean Platelet Volume 7.1 FL (6.5-10.1) Neutrophils (%) (Auto) 46.3 % (45.0-75.0) Lymphocytes (%) (Auto) 44.3 % (20.0-45.0) Monocytes (%) (Auto) 6.8 % (1.0-10.0) Eosinophils (%) (Auto) 1.8 % (0.0-3.0) Basophils (%) (Auto) 0.9 % (0.0-2.0) Chemistry Test 05/12/17 09:50 Sodium Level 142 MMOL/L (136-145) Potassium Level 3.7 MMOL/L (3.5-5.1) Chloride Level 107 MMOL/L (98-107) Carbon Dioxide Level 24 MMOL/L (21-32) Anion Gap 11 mmol/L (5-15) Blood Urea Nitrogen 12 mg/dL (7-18) Creatinine 0.7 MG/DL (0.55-1.30) Estimat Glomerular Filtration Rate > 60 mL/min (>60) Glucose Level 115 MG/DL (74-106) H Calcium Level 8.8 MG/DL (8.5-10.1) Total Bilirubin 0.3 MG/DL (0.2-1.0) Aspartate Amino Transf (AST/SGOT) 19 U/L (15-37) Alanine Aminotransferase (ALT/SGPT) 34 U/L (12-78) Alkaline Phosphatase 78 U/L (46-116) Total Protein 7.3 G/DL (6.4-8.2) Albumin 3.6 G/DL (3.4-5.0) Globulin 3.7 g/dL Albumin/Globulin Ratio 1.0 (1.0-2.7) Amylase Level 62 U/L (25-115) Lipase 176 U/L (73-393) Risk Assessment & Plan Assessment: asa3 Plan: mac Status Change Before Surgery: No Pre-Antibiotics Drug: RAJI Humphries May 13, 2017 07:06
[2017-05-13] MEDS ORDERED: Midazolam 2mg/2ml Inj IVP PRN (07:15)
[2017-05-13] MEDS ORDERED: DiphenhydrAMINE 50mg/ml Inj IVP PRN (07:15)
[2017-05-13] MEDS ORDERED: Atropine Inj 1mg/10ml Syr IV PRN (07:15)
[2017-05-13] MEDS ORDERED: fentaNYL 100 mcg/2 mL IV PRN (07:15)
[2017-05-13] MEDS ORDERED: PROTONIX40 MG ORAL (08:46)
--- NOTE | 2017-05-13 08:49 | General Progress Note ---
Assessment/Plan Problem List: (1) Chest pain ICD Codes: R07.9 - Chest pain, unspecified SNOMED: 48223205 (2) Episode of generalized weakness ICD Codes: R53.1 - Weakness SNOMED: 84215571 (3) Labile hypertension ICD Codes: R09.89 - Other specified symptoms and signs involving the circulatory and respiratory systems SNOMED: 888469666 (4) DM (diabetes mellitus) ICD Codes: E11.9 - Type 2 diabetes mellitus without complications SNOMED: 78235675 (5) Abdominal cramping ICD Codes: R10.9 - Unspecified abdominal pain SNOMED: 80842492 (6) Anxiety ICD Codes: F41.9 - Anxiety disorder, unspecified SNOMED: 51380868 Status: stable Assessment/Plan PPI rx dc metformin gi cocktail egd today dc planning later today if stable Subjective ROS Limited/Unobtainable: No Constitutional: Reports: malaise, weakness HEENT: Reports: no symptoms Cardiovascular: Reports: no symptoms Respiratory: Reports: no symptoms Gastrointestinal/Abdominal: Reports: abdominal pain Genitourinary: Reports: no symptoms Neurologic/Psychiatric: Reports: no symptoms Endocrine: Reports: no symptoms Hematologic/Lymphatic: Reports: no symptoms Allergies: Coded Allergies: No Known Allergies (Unverified , 11/07/16) All Systems: reviewed and negative except above Subjective decreased epigastric pain/nausea. CT noted. no fever, chills, chest pain sob., Objective Last 24 Hour Vital Signs Date Time Temp Pulse Resp B/P (MAP) Pulse Ox O2 Delivery O2 Flow Rate FiO2 05/13/17 07:42 86 16 99 Room Air 21 05/13/17 07:41 86 16 99 Room Air 21 05/13/17 04:00 50 05/13/17 04:00 98.1 52 20 143/79 97 Room Air 98.1 05/13/17 01:27 Room Air 21 05/13/17 01:27 Room Air 21 05/13/17 00:00 97.9 56 20 157/78 97 Room Air 97.9 05/13/17 00:00 62 05/12/17 20:00 67 05/12/17 20:00 97.9 63 20 144/84 94 Room Air 97.9 05/12/17 18:40 95 20 97 Room Air 21 05/12/17 18:39 95 16 96 Room Air 21 05/12/17 16:00 62 05/12/17 16:00 97.7 64 18 121/41 97 Room Air 97.7 05/12/17 12:00 62 05/12/17 12:00 97.7 59 19 122/62 97 Room Air 97.7 05/12/17 11:36 71 18 97 Room Air 21 05/12/17 11:36 71 18 97 Room Air 21 Intake and Output 05/12/17 05/13/17 19:00 07:00 Intake Total 588 ml Balance 588 ml Intake Oral 588 ml # Voids 2 2 Laboratory Tests 05/12/17 09:50: White Blood Count 7.8, Red Blood Count 4.55, Hemoglobin 14.5, Hematocrit 42.3, Mean Corpuscular Volume 93, Mean Corpuscular Hemoglobin 31.9H, Mean Corpuscular Hemoglobin Concent 34.3, Red Cell Distribution Width 11.5L, Platelet Count 285, Mean Platelet Volume 7.1, Neutrophils (%) (Auto) 46.3, Lymphocytes (%) (Auto) 44.3, Monocytes (%) (Auto) 6.8, Eosinophils (%) (Auto) 1.8, Basophils (%) (Auto ) 0.9, Sodium Level 142, Potassium Level 3.7, Chloride Level 107, Carbon Dioxide Level 24, Anion Gap 11, Blood Urea Nitrogen 12, Creatinine 0.7, Estimat Glomerular Filtration Rate > 60, Glucose Level 115H, Calcium Level 8.8, Total Bilirubin 0.3, Aspartate Amino Transf (AST/SGOT) 19, Alanine Aminotransferase ( ALT/SGPT) 34, Alkaline Phosphatase 78, Total Protein 7.3, Albumin 3.6, Globulin 3.7, Albumin/Globulin Ratio 1.0, Amylase Level 62, Lipase 176 Height (Feet): 5 Height (Inches): 4.00 Weight (Pounds): 180 Objective General Appearance: WD/WN, alert Neck: supple Cardiovascular: regular rhythm Respiratory/Chest: lungs clear, normal breath sounds Abdomen: normal bowel sounds, non tender, soft, no organomegaly Edema: no edema noted Arm (L), no edema noted Arm (R), no edema noted Leg (L), no edema noted Leg (R), no edema noted Pedal (L), no edema noted Pedal (R), no edema noted Generalized UOMOTO,KRIS May 13, 2017 08:49
[2017-05-13] MEDS ORDERED: Heparin 5000 units/ml inj SUBQ SCH (09:00)
[2017-05-13] MEDS: Flonase Nasal Inhaler 16gm NASAL SCH (09:17)
[2017-05-13] MEDS: Aspirin EC 81mg tab ORAL SCH (09:18)
[2017-05-13] MEDS ORDERED: NS 500ML IV ONE (11:10)
--- NOTE | 2017-05-13 11:17 | Pre-Procedure Note/Attestation ---
Pre-Procedure Note/Attestation Complete Prior to Procedure Planned Procedure: not applicable Procedure Narrative: egd Indications for Procedure Pre-Operative Diagnosis: abd pain Attestation I attest that I discussed the nature of the procedure; its benefits; risks and complications; and alternatives (and the risks and benefits of such alternatives ), prior to the procedure, with the patient (or the patient's legal payroll representative). I attest that, if there was a reasonable possibility of needing a blood transfusion, the patient (or the patient's legal payroll representative) was given the [facility] standardized written summary, pursuant to the Blane Rebel Blood Safety Act ([place] Health and Safety Code # 1645, as amended). I attest that I re-evaluated the patient just prior to the surgery and that there has been no change in the patient's H&P, except as documented below: SONJA VALLE May 13, 2017 11:17
--- NOTE | 2017-05-13 11:30 | Endoscopy Procedure Note ---
Endoscopy Procedure Note General Indication for Procedure: abd pain Procedures Performed: EGD Operative Findings/Diagnosis: gastritis Specimen: yes Pt Tolerated Procedure Well: Yes Estimated Blood Loss: none Anesthesia Anesthesiologist: zacarias Anesthesia: MAC Inserted Devices Implant(s) used?: No GI Core Measures 50 yrs or older w/o bx or poly: Not Applicable 10yrs. F/U not recommended: Not Applicable SONJA VALLE May 13, 2017 11:30
--- NOTE | 2017-05-13 12:30 | Procedure Note ---
DATE OF PROCEDURE: 05/13/2017 SURGEON: Jose Garsia M.D. ANESTHESIOLOGIST: Dr. Alexandra. REFERRING PHYSICIAN: Logan Murphy M.D. PROCEDURE: Upper endoscopy with biopsy. ANESTHESIA: Per Dr. Alexandra. INSTRUMENT: Olympus adult flexible upper endoscope. INDICATION: Abdominal pain. CT showed evidence of gastric wall thickening. The procedure, risks, benefits, and possible consequences, including hemorrhage, aspiration, perforation and infection, and alternative treatments, were explained to the patient/legal guardian by Dr. Jose Garsia and the patient/legal guardian understood and accepted these risks. DESCRIPTION OF PROCEDURE: After informed consent was obtained and the patient was adequately sedated, Olympus upper endoscope was advanced from mouth to the second portion of duodenum and retroflexion performed in the stomach. The patient had evidence of diffuse gastritis. Random biopsy from body and antrum was obtained to rule out H. pylori infection. The patient had evidence of duodenitis [id number]. No obvious ulcerations. No obvious bleeding. Retroflexion of the stomach showed no evidence of any large hiatal hernia. GE junction was found to be at about 36 cm from the incisors. There was some irregularity of the Z-line but no evidence of any obvious esophagitis and no esophageal mass. The patient tolerated the procedure very well without complication. SUMMARY OF FINDINGS: 1. Irregular Z-line. 2. Diffuse gastritis, status post biopsy. 3. Duodenitis. RECOMMENDATIONS: Follow up biopsy results and treat accordingly. I want to thank Dr. Murphy for this kind referral. Jose Garsia M.D. DR: Milind JOB#: [id number] CC: Logan Murphy M.D.
--- NOTE | 2017-05-13 13:37 | Immediate Post-Op Evaluation ---
Immediate Post-Op Evalulation Immediate Post-Op Evalulation Procedure: egd w/ bx Date of Evaluation: May 13, 2017 Time of Evaluation: 11:43 IV Fluids: 150ml 0.9ns Blood Products: none Estimated Blood Loss: negligible Blood Pressure Systolic: 100 Blood Pressure Diastolic: 47 Pulse Rate: 68 Respiratory Rate: 18 O2 Sat by Pulse Oximetry: 99 Temperature (Fahrenheit): 97.1 Pain Score (1-10): 0 Nausea: No Vomiting: No Complications none Patient Status: awake, reacts, patent Hydration Status: adequate Drug: RAJI Humphries May 13, 2017 13:37
--- NOTE | 2017-05-13 13:39 | 48 Hour Post Anesthesia Eval ---
Post Anesthesia Evaluation Procedure: egd w/ bx Date of Evaluation: May 13, 2017 Time of Evaluation: 11:45 Blood Pressure Systolic: 114 0: 73 Pulse Rate: 55 Respiratory Rate: 18 Temperature (Fahrenheit): 97.1 O2 Sat by Pulse Oximetry: 99 Airway: patent Nausea: No Vomiting: No Pain Intensity: 0 Hydration Status: adequate Cardiopulmonary Status: stable Mental Status/LOC: patient returned to baseline Post-Anesthesia Complications: none Follow-up care needed: N/A RAJI JANG May 13, 2017 13:38
[2017-05-13] MEDS: Acetaminophen 500mg (ES) tab ORAL PRN (16:32)
[2017-05-13] MEDS ORDERED: Lidocaine 1% MPF 10mg/ml 5ml ONE (16:52)
[2017-05-13] MEDS ORDERED: D5 1/2NS 1000ml IV ONE (16:52)
[2017-05-13] MEDS ORDERED: Propofol 200mg/20ml IV ONE (16:52)
--- NOTE | 2017-05-14 02:30 | Progress Note ---
DATE: 05/13/2017 CARDIOLOGY PROGRESS NOTE SUBJECTIVE: The patient is status post endoscopy today, notable for gastritis and duodenitis and no shortness of breath. No new chest discomfort. OBJECTIVE: VITAL SIGNS: Blood pressure of 132/75, pulse 55, respirations 17, and afebrile. LUNGS: Clear. CARDIAC: Regular rhythm and rate. Normal S1, S2 with no murmur, rub, or gallop. ABDOMEN: Slightly distended, but soft. EXTREMITIES: Without edema. IMPRESSION: Chest pain, likely due to gastritis and esophagitis. Recent stress test was negative. Recommend outpatient followup on GI regimen. Outpatient stress test if symptoms persist. Maintain LDL less than 100. Avoid anti-platelet therapy in view of GI pathology at this time. Joao Hayes M.D. DR: BENIGNO JOB#: [id number] CC:
--- NOTE | 2017-05-14 12:58 | Discharge Summary ---
Discharge Summary Hospital Course Date of Admission May 10, 2017 at 17:34 Date of Discharge May 13, 2017 at 16:53 Admitting Diagnosis chest pain HPI Addie Harper is a 56 year old female who was admitted on May 10, 2017 at 17:34 for Chest Pain Hospital Course dc summary #[id number] Discharge Medications New Medications: Pantoprazole* (Protonix*) 40 Mg Tablet.dr 40 MG ORAL EVERY 12 HOURS for 30 Days, #60 TAB Continued Medications: Albuterol Sulfate* (Albuterol Sulfate Mdi*) 8.5 Gm Hfa.aer.ad 2 PUFF INH Q6H, #1 EA 0 Refills Albuterol Sulfate* (Proair Hfa*) 8.5 Gm Hfa.aer.ad 2 PUFFS INH Q6H, #8.5 GM 0 Refills Alprazolam* (Xanax*) 0.25 Mg Tablet 0.25 MG ORAL TID PRN for For Anxiety, #20 TAB Benzonatate* (Benzonatate*) 200 Mg Capsule 200 MG ORAL PRN for For Cough Fluticasone Propionate* (Fluticasone Propionate*) 16 Gm [place].susp 1 SPRAY NASAL DAILY, EA Rosuvastatin Calcium* (Crestor*) 20 Mg Tablet 20 MG ORAL BEDTIME, TAB Soy Isofla/Blk Cohosh/Mag Bark (Estroven 155 mg Capsule) 155 Mg Capsule 155 MG PO, CAP Discontinued Medications: Alprazolam* (Xanax*) 0.25 Mg Tablet 0.25 MG ORAL THREE TIMES A DAY, #10 TAB 0 Refills Amlodipine Besylate* (Amlodipine Besylate*) 10 Mg Tablet 10 MG ORAL DAILY, TAB Metformin Hcl* (Metformin Hcl*) 500 Mg Tablet 500 MG ORAL DAILY, TAB Ranitidine Hcl* (Zantac*) 150 Mg Tablet 150 MG ORAL TWICE A DAY, #30 TAB Discharge Condition Upon Discharge: stable Discharge Disposition Patient was discharged to Home () Discharge Diagnoses: Discharge Instructions Discharge Instructions Special Instructions I have been assigned to complete a D/C Summary on this account. I was not involved in the patient management Agustina Merritt NP (Vanchtein) May 14, 2017 12:57
--- NOTE | 2017-05-14 17:36 | Cardiology Report ---
APPROVED REPORT EXAM: Two-dimensional and M-mode echocardiogram with Doppler and color Doppler. INDICATION Acute myocard infarction M-Mode DIMENSIONS IVSd0.9 (0.7-1.1cm)Left Atrium (MM)3.6 (1.6-4.0cm) LVDd5.1 (3.5-5.6cm)Aortic Root2.5 (2.0-3.7cm) PWd0.9 (0.7-1.1cm)Aortic Cusp Exc.1.9 (1.5-2.0cm) LVDs3.2 (2.5-4.0cm) PWs1.4 cm Technically difficult study due to poor acoustical windows. Normal left ventricular chamber size, systolic function and wall motion. Left ventricular ejection fraction estimated to be 55-60%. No evidence of left ventricular hypertrophy. No evidence of pericardial or pleural effusion. Right cardiac chamber sizes are within normal limits. Mild left atrial enlargement by 2D. Focal aortic valve sclerosis with adequate cusp excursion. Thickened mitral valve leaflets with normal excursion. Mild mitral annulus and aortic root calcification. Pulmonic valve not well visualized. Normal tricuspid valve structure. IVC is normal in size and collapsible with respiration. A color flow and spectral Doppler study was performed and revealed: No aortic regurgitation. Mild mitral regurgitation. Mitral diastolic velocities suggest reduced left ventricular relaxation c/w diastolic dysfunction grade 1. Mild tricuspid regurgitation. Tricuspid systolic velocities suggests peak right ventricular systolic pressure of 32 mmHg Pulmonic regurgitation present.
--- NOTE | 2017-05-14 18:49 | Cardiology Report ---
APPROVED REPORT EKG Measurement Heart [id number] Normal sinus rhythm Normal ECG
--- NOTE | 2017-05-14 23:15 | Discharge Summary 2 SIG ---
DATE OF ADMISSION: 05/10/2017 DATE OF DISCHARGE: 05/13/2017 REASON FOR ADMISSION: 56 years old female with past medical history of hypertensive heart disease, hyperlipidemia, diabetes, smoking history, presented to emergency department with a complaint of chest pain. Pain initially was in the mid epigastric area for the last three to four months, presented with pressure and burning sensation and radiation to the chest. The pain became worse earlier that morning while she was eating the food. The patient also had a history of GERD and usually takes Zantac. She denied cough, hemoptysis, shortness of breath, syncope, leg pain or swelling, or diaphoresis. Last stress test was three years ago and was negative. Upon evaluation in the emergency department, troponin was negative. EKG revealed normal sinus with no acute ischemic changes. Chest x-ray revealed no acute cardiopulmonary pathology. Vital signs were stable, however, due to multiple risk factors, including hypertension, hyperlipidemia, diabetes, and tobacco use, the patient was admitted for chest pain evaluation. Admitting diagnoses include chest pain, hypertension, diabetes, abdominal pain, and anxiety. HOSPITAL COURSE: The patient admitted to the telemetry floor. Serial troponins x2 were negative. EKG revealed no acute ischemic changes. Therefore, the patient was ruled out for acute RI. Cardiology and GI closely followed. Echocardiogram revealed preserved ejection fraction of 55% to 60%, right ventricular systolic pressure of 32, and no evidence of left ventricular hypertrophy. Venous duplex of bilateral lower extremities was negative. Lipid panel showed elevated triglycerides of 243, borderline LDL - 105 and low HDL. The patient was counseled on diabetic, low-fat, low-cholesterol, and low-salt diet. The patient was counseled on smoking cessation. Statin was continued. Urine tox screen was negative. Stress test three years ago was negative. Initially, the patient was on antiplatelet therapy and was waiting for the GI recommendation. Blood pressure was managed with calcium channel belkis, dose was optimized based on blood pressure readings. The patient was on DVT prophylaxis. The patient was on PPI, frequency increased to twice a day. Blood sugar was managed with sliding scale of insulin. GI seen and evaluated the patient. Patient recently was diagnosed with diabetes and started on metformin. Per GI, reported diarrhea and indigestion were likely secondary to metformin. Metformin was stopped. GI cocktail was added to existing regimen. CT of the abdomen and pelvis revealed questionable thickening of the proximal stomach. Gastritis or additional abnormality was not entirely excluded. Recommended upper endoscopy. No evidence of bowel obstruction, no free intraperitoneal air, appendix was normal, status post cholecystectomy. The patient subsequently undergone on 05/13/2017 EGD, which revealed irregular Z-line, diffuse gastritis, status post biopsy, and duodenitis. EGD showed no evidence of any obvious esophagitis or esophageal mass. Biopsy results still pending. GI recommended to follow up with biopsy results and treat accordingly, cleared the patient for discharge. Continue PPI at home. Pain management provided. According to director of technology at this point in lieu of findings of gastritis, hold antiplatelet therapy for now and consider to repeat stress test as outpatient. Patient was able to tolerate diet. No diarrhea. No indigestion. Patient was stable for discharge. FINAL DIAGNOSES: 1. Atypical chest pain, likely secondary to gastritis and duodenitis. 2. Status post esophagogastroduodenoscopy with findings of gastritis and duodenitis. 3. Hypertension. 4. Hypertriglyceridemia. 5. Diabetes mellitus 6. Mid-epigastric pain likely due to gastritis and duodenitis. DISCHARGE MEDICATIONS: See medication reconciliation list. DISCHARGE INSTRUCTIONS: The patient discharged home. Outpatient follow up with GI;outpatient follow up with the director of technology and recommended stress test. Follow up with the primary care provider next week. Logan Murphy M.D. I have been assigned to dictate discharge summary on this account and I was not involved in the patient's management. Agustina WatsonGood Samaritan HospitalGurmeet N.PHarpreet DR: AYALA JOB#: [id number] CC: ROMI
--- NOTE | 2017-05-26 21:39 | Diagnostic Imaging Report ---
APPROVED REPORT CPT Code: 13805 Present Symptoms Comments: R/O DVT BILATERAL: Imaging reveals a patent deep venous system bilaterally. There is no evidence of thrombus within the femoral, popliteal or tibial segments. The greater saphenous veins are also within normal limits. Doppler indicates normal spontaneous flow within these segments.
== END 2017-05-13 16:53 | disposition home or self-care (01) | DRG 392 ==
LOC: EMR 15:07 → 2E 17:34 → EDBEDREQ 18:10 → 2E 20:38
PROC: 0DB68ZX Excision of Stomach, Via Natural or Artificial Opening Endoscopic, Diagnostic (ICD-10-PCS; principal; 2017-05-13 11:23)
PROC: 0DB78ZX Excision of Stomach, Pylorus, Via Natural or Artificial Opening Endoscopic, Diagnostic (ICD-10-PCS; principal; 2017-05-13 11:23)
DX: K29.70 Gastritis, unspecified, without bleeding (principal); I11.9 Hypertensive heart disease without heart failure; K29.80 Duodenitis without bleeding; R10.13 Epigastric pain; R07.89 Other chest pain; E78.1 Pure hyperglyceridemia; E11.9 Type 2 diabetes mellitus without complications; F17.200 Nicotine dependence, unspecified, uncomplicated; F41.9 Anxiety disorder, unspecified; Z86.010 Personal history of colon polyps; K21.9 Gastro-esophageal reflux disease without esophagitis; J45.909 Unspecified asthma, uncomplicated; Z79.84 Long term (current) use of oral hypoglycemic drugs
CPT/HCPCS: 36415; 71045; 74176; 80053; 80061; 80307; 82150; 82962; 83690; 84484; 85025; 93005; 93306; 93970; 94003; 94150; 94640; 99285; J1815

== ENCOUNTER 2019-05-21 18:23 | Emergency (ER) | payer BC ==
[~2019-05-21] VITALS: Ht 162.6 cm; Wt 86.6 kg
[~2019-05-21 18:23] MED LIST changes: +METFORMIN HCL500 M1 ORAL; +PROAIR HFA8.5 GM INH; +PROTONIX40 MG ORAL
[2019-05-21] MEDS ORDERED: ATORVASTATIN CA20 MG ORAL (18:34)
[2019-05-21] MEDS ORDERED: AMLODIPINE BESYL5 MG ORAL (18:34)
[2019-05-21] MEDS ORDERED: ACETAMINOPHEN500 MG ORAL (18:34)
--- NOTE | 2019-05-21 18:41 | NUR ---
ED Nurse Note: Pt from home walked in due to tingling sensation on her left arm, right side of face, bilateral legs and headcahe since yesterday. Denies vomiting. No slurring of speech or facial drooping. AAO x4, ambulatory with non labored breathing.
--- NOTE | 2019-05-21 18:57 | Emergency Room Report ---
History of Present Illness General Chief Complaint: General Complaint Source: Patient Present Illness HPI 58-year-old female history of hypertension presents with tingling in her hands and feet that come and go she felt a little tingling in her chest earlier today around 12pm lasting a few minutes, not worse with exertion alleviated with relaxation, no aggravating factors she denies any nausea vomiting dyspnea on exertion abdominal pain patient presents for evaluation Allergies: Coded Allergies: No Known Allergies (Unverified , 11/07/16) COVID-19 Screening Contact w/high risk pt: No Recent Travel to affected area: No Experienced COVID-19 symptoms?: No Patient History Past Medical History: see triage record Last Menstrual Period: 2010 Now: No Reviewed Nursing Documentation: PMH: Agreed; PSxH: Agreed Nursing Documentation-PMH Hx Cardiac Problems: Yes Hx Hypertension: Yes Hx Asthma: Yes Hx Diabetes: Yes Hx Cancer: No Hx Gastrointestinal Problems: Yes History Of Psychiatric Problem: Yes - anxiety Hx Neurological Problems: No Review of Systems All Other Systems: negative except mentioned in HPI Physical Exam Vital Signs Date Time Temp Pulse Resp B/P (MAP) Pulse Ox O2 Delivery O2 Flow Rate FiO2 05/21/19 18:26 98.2 72 20 157/88 (111) 97 Room Air Sp02 EP Interpretation: reviewed, normal General Appearance: well appearing, no apparent distress, alert Head: normocephalic, atraumatic Eyes: bilateral eye PERRL, bilateral eye EOMI ENT: uvula midline, moist mucus membranes Neck: supple, thyroid normal, supple/symm/no masses Respiratory: lungs clear, no respiratory distress, no retraction, no accessory muscle use Cardiovascular #1: normal peripheral pulses, regular rate, rhythm, no edema, no gallop, no murmur Gastrointestinal: non tender, soft, no guarding, no rebound Musculoskeletal: normal inspection Neurologic: alert, oriented x3 Psychiatric: mood/affect normal Skin: no rash, warm/dry Medical Decision Making Diagnostic Impression: Primary Impression: Atypical chest pain Additional Impression: Neuropathy ER Course 58-year-old female presents with atypical chest pain differential diagnosis includes ACS, atypical chest pain, neuropathy Patient's chest pain has since resolved No dyspnea on exertion patient with heart score less than 3 We will provide patient with Neurontin as well as famotidine disposition home with return precautions follow-up with PCP Laboratory Tests Test 05/21/19 19:00 White Blood Count 11.2 K/UL (4.8-10.8) H Red Blood Count 4.92 M/UL (4.20-5.40) Hemoglobin 15.1 G/DL (12.0-16.0) Hematocrit 46.5 % (37.0-47.0) Mean Corpuscular Volume 94 FL (80-99) Mean Corpuscular Hemoglobin 30.7 PG (27.0-31.0) Mean Corpuscular Hemoglobin Concent 32.5 G/DL (32.0-36.0) Red Cell Distribution Width 12.6 % (11.6-14.8) Platelet Count 298 K/UL (150-450) Mean Platelet Volume 6.9 FL (6.5-10.1) Neutrophils (%) (Auto) 55.6 % (45.0-75.0) Lymphocytes (%) (Auto) 38.4 % (20.0-45.0) Monocytes (%) (Auto) 4.2 % (1.0-10.0) Eosinophils (%) (Auto) 0.5 % (0.0-3.0) Basophils (%) (Auto) 1.4 % (0.0-2.0) Sodium Level 139 MMOL/L (136-145) Potassium Level 3.8 MMOL/L (3.5-5.1) Chloride Level 103 MMOL/L (98-107) Carbon Dioxide Level 25 MMOL/L (21-32) Anion Gap 12 mmol/L (5-15) Blood Urea Nitrogen 10 mg/dL (7-18) Creatinine 0.7 MG/DL (0.55-1.30) Estimated Glomerular Filtration Rate > 60 mL/min (>60) Glucose Level 102 MG/DL (74-106) Calcium Level 9.4 MG/DL (8.5-10.1) Total Bilirubin 0.5 MG/DL (0.2-1.0) Aspartate Amino Transferase (AST) 21 U/L (15-37) Alanine Aminotransferase (ALT) 26 U/L (12-78) Alkaline Phosphatase 87 U/L (46-116) Troponin I 0.000 ng/mL (0.000-0.056) Pro-B-Type Natriuretic Peptide 32 pg/mL (0-125) Total Protein 8.3 G/DL (6.4-8.2) H Albumin 4.5 G/DL (3.4-5.0) Globulin 3.8 g/dL Albumin/Globulin Ratio 1.2 (1.0-2.7) Lipase 148 U/L (73-393) EKG Diagnostic Results EKG Time: 19:02 EP Interpretation: NSR, rate 66, QTc 492, no acute ST elevations, normal axis Rhythm Strip Diag. Results Rhythm Strip Time: 19:08 EP Interpretation: yes Rate: 67 Rhythm: NSR, no PVC's, no ectopy Chest X-Ray Diagnostic Results Chest X-Ray Diagnostic Results : Chest X-Ray Ordered: Yes # of Views/Limited/Complete: 1 View Indication: Chest Pain EP Interpretation: Yes Interpretation: no consolidation, no effusion, no pneumothorax, no acute cardiopulmonary disease Impression: No acute disease Electronically Signed by: Binu Alvarenga MD Last Vital Signs Date Time Temp Pulse Resp B/P (MAP) Pulse Ox O2 Delivery O2 Flow Rate FiO2 05/21/19 18:36 72 20 Room Air 05/21/19 18:26 98.2 157/88 (111) 97 Disposition: HOME, SELF-CARE Condition: Stable Scripts Famotidine* (Pepcid 20mg tablet*) 20 Mg Tablet 20 MG ORAL TWICE A DAY, #60 TAB 0 Refills Prov: Binu Alvarenga MD 05/21/19 Gabapentin* (GABAPENTIN*) 300 Mg Capsule 300 MG ORAL BEDTIME PRN for neuropathy, #30 CAP Prov: Binu Alvarenga MD 05/21/19 Referrals: [facility] Ayaan Mclean [facility] Patient Instructions: Nonspecific Chest Pain, [id number], Peripheral Neuropathy Additional Instructions: The patient was provided with discharge instructions, notified to follow-up with a primary care doctor and or specialist in the next 24-48 hours, and to return to the ED if they have worsening of their symptoms. Please note that this report is being documented using [employer] technology. This can lead to erroneous entry secondary to incorrect interpretation by the dictating instrument. Please follow-up with pcp and obtain an outpatient stress test Binu Alvarenga MD May 21, 2019 18:57
[2019-05-21 19:06] VITALS: BP 172/81
--- NOTE | 2019-05-21 19:07 | NUR ---
ED Nurse Note: Collected blood specimen then sent.
--- NOTE | 2019-05-21 19:11 | NUR ---
HAND-OFF: Report given to Ila THOMPSON.
--- NOTE | 2019-05-21 19:12 | NUR ---
ED Nurse Note: Pt received from DONNA Gomez. Pt is aaox4, no acute distress noted. Will continue to monitor. Blood specimen collected and sent to lab.
[2019-05-21 19:38] LABS: BASOPHILS % (AUTO) 1.4 % (0.0-2.0); EOSINOPHILS % (AUTO) 0.5 % (0.0-3.0); HEMATOCRIT 46.5 % (37.0-47.0); HEMOGLOBIN 15.1 G/DL (12.0-16.0); LYMPHOCYTES % (AUTO) 38.4 % (20.0-45.0); MEAN CORPUSCULAR VOLUME 94 FL (80-99); MONOCYTES % (AUTO) 4.2 % (1.0-10.0); NEUTROPHILS % (AUTO) 55.6 % (45.0-75.0); PLATELET COUNT 298 K/UL (150-450); RED BLOOD COUNT 4.92 M/UL (4.20-5.40); RED CELL DISTRIBUTION WIDTH 12.6 % (11.6-14.8); WHITE BLOOD COUNT 11.2 K/UL (4.8-10.8)
[2019-05-21 20:03] LABS: ANION GAP 12 mmol/L (5-15); BLOOD UREA NITROGEN 10 mg/dL (7-18); CALCIUM 9.4 MG/DL (8.5-10.1); CARBON DIOXIDE 25 MMOL/L (21-32); CHLORIDE 103 MMOL/L (98-107); CREATININE 0.7 MG/DL (0.55-1.30); POTASSIUM 3.8 MMOL/L (3.5-5.1); SODIUM 139 MMOL/L (136-145)
[2019-05-21 20:13] LABS: ALANINE AMINOTRANSFERASE 26 U/L (12-78); ALBUMIN 4.5 G/DL (3.4-5.0); ALBUMIN/GLOBULIN RATIO 1.2 (1.0-2.7); ALKALINE PHOSPHATASE 87 U/L (46-116); ASPARTATE AMINO TRANSFERASE 21 U/L (15-37); BILIRUBIN,TOTAL 0.5 MG/DL (0.2-1.0)
--- NOTE | 2019-05-21 20:15 | NUR ---
ED Nurse Note: Pt c/o tingling pain in chest and face, ERMD aware and will carry out medication order.
[2019-05-21] MEDS ORDERED: Ketorolac 30mg Inj IV ONE (20:30)
[2019-05-21] MEDS ORDERED: Mylanta II UD 30ml ORAL ONE (20:30)
[2019-05-21] MEDS ORDERED: GABAPENTIN300 MG ORAL (20:34)
[2019-05-21] MEDS ORDERED: FAMOTIDINE20 MG ORAL (20:34)
[2019-05-21] MEDS ORDERED: MYLANTA MAXIMU355 ML PO (20:39)
[2019-05-21 21:15] VITALS: BP 160/71
--- NOTE | 2019-05-21 21:15 | NUR ---
ER DISCHARGE NOTE: Patient is cleared to be discharged per ERMD, pt is aox4, on room air, with stable vital signs. pt was given dc and prescription instructions, pt was able to verbalize understanding, pt id band and iv site removed without complications. pt is able to ambulate with steady gait. pt took all belongings.
--- NOTE | 2019-05-22 11:27 | Diagnostic Imaging Report ---
Indication: Chest pain Technique: XRAY Chest 1v Comparison: 05/10/2017 and 03/27/2017 Findings: Heart is borderline enlarged but stable in size. Mediastinal contours are sharp. There is no focal airspace consolidation, pleural effusion or pneumothorax. No radiographic evidence to suggest pulmonary edema. There are mild degenerative changes in the thoracic spine. Subacromial enthesophytes noted on the right. No acute osseous abnormality. Impression: No radiographic evidence of acute cardiopulmonary disease. Stable borderline cardiomegaly.
== END 2019-05-21 21:20 | disposition home or self-care (01) ==
LOC: EMR 19:33
DX: R07.89 Other chest pain (principal); E11.42 Type 2 diabetes mellitus with diabetic polyneuropathy; I10 Essential (primary) hypertension; J45.909 Unspecified asthma, uncomplicated; F41.9 Anxiety disorder, unspecified
CPT/HCPCS: 36415; 71045; 80053; 83690; 83880; 84484; 85025; 93005; 96374; 99284; J1885